=== PATIENT | female | born 1995 | race Hispanic/Latino ===

== ENCOUNTER 2018-06-24 03:30 | Emergency (ER) | payer OTHER, MEDICAID, SELFPAY ==
[2018-06-24 03:48] VITALS: BP 120/71; PULSE 71; RESP 20; TEMP 36.7; O2SAT 99; BMI 47.5
--- NOTE | 2018-06-24 04:00 | ED_ITS ---
HPI - Nausea/Vomiting/Diarrhea General Chief complaint: Nausea/Vomiting/Diarrhea Stated complaint: N/V/D Time Seen by Provider: 06/24/18 03:35 Source: patient and family Mode of arrival: ambulatory Limitations: no limitations History of Present Illness HPI Narrative: 23-year-old female, nonsmoker with history of gastritis presents with 1 week of nausea, vomiting and diarrhea. She denies dizziness, weakness or lightheadedness. She denies recent travel. She denies any recent antibiotics. She denies any exposure to ill persons.She denies any fever or shaking chills. She has had similar symptoms in the past and was told it was called gastritis. She denies any new dietary limitations. She admits to generalized abdominal discomfort that pills until an episode of vomiting or diarrhea at which point improves slightly with until symptoms returns MD complaint: nausea, vomiting and diarrhea Onset (ago): day(s) Description of Vomiting: watery Description of Diarrhea: watery and mucousy Associated Abdominal Pain: Yes Location of pain: diffuse Severity: mild Quality: cramping Related Data Home Medications Medication Instructions Recorded Confirmed levothyroxine [Synthroid] 100 mcg PO Q DAY #0 10/06/11 Previous Rx's Medication Instructions Recorded norgestimate-ethinyl estradiol 1 tab PO QDAY #1 packet 05/16/17 [Ortho Tri-Cyclen (28)] hyoscyamine sulfate 0.125 mg SL BID-QID PRN #10 tab 06/24/18 ondansetron 4 mg PO TID-QID PRN #10 tab 06/24/18 pantoprazole [Protonix] 40 mg PO DAILY #30 tab 06/24/18 Allergies Allergy/AdvReac Type Severity Reaction Status Date / Time No Known Drug Allergies Allergy Verified 06/24/18 04:01 Review of Systems Constitutional Denies chills, Denies fever(s), Denies lethargy and Denies weakness Eyes Denies change in vision, Denies eye discharge, Denies irritation and Denies loss of vision ENT Ears, Nose, Mouth, and Throat: Denies change in voice, Denies neck pain and Denies sore throat Cardiovascular Denies chest pain, Denies irregular heart rhythm, Denies lightheadedness, Denies palpitations, Denies dyspnea, Denies dyspnea on exertion and Denies orthopnea Respiratory Denies cough, Denies dyspnea, Denies dyspnea on exertion and Denies wheezing Gastrointestinal Gastrointestinal: Reports abdominal pain, Denies change in bowel habits, Reports diarrhea, Reports nausea and Reports vomiting Genitourinary Denies hematuria, Denies flank pain, Denies urinary incontinence and Denies urinary urgency Musculoskeletal Denies neck pain Integumentary/Breasts Denies pruritus, Denies erythema, Denies rash and Denies wounds Neurologic Denies confusion, Denies loss of vision and Denies weakness Psychiatric Denies anxiety, Denies confusion, Denies depression, Denies homicidal ideation and Denies suicidal ideation Endocrine Denies palpitations Hematologic/Lymphatic Denies easy bruising Allergic/Immunologic Denies wheezing [facility] Social History Smoking Status: Never smoker Exam Narrative Exam Narrative: GENERAL: 23-year-old female, morbidly obese, no obvious distress HEAD: Atraumatic. Normocephalic. No temporal or scalp tenderness. EYES: Pupils equal round and reactive. Extraocular motions intact. No scleral icterus. No injection or drainage. ENT: Nose without bleeding, purulent drainage or septal hematoma. Throat without erythema, tonsillar hypertrophy or exudate. Uvula midline. Airway patent. NECK: Trachea midline. No JVD or lymphadenopathy. Supple, nontender, no meningeal signs. CARDIOVASCULAR: Regular rate and rhythm without murmurs, gallops, or rubs. RESPIRATORY: Clear to auscultation. Breath sounds equal bilaterally. No wheezes , rales, or rhonchi. GASTROINTESTINAL: Abdomen soft, non-tender, nondistended. No hepato-splenomegaly , or palpable masses. No guarding. EXTREMITIES: No clubbing, cyanosis, or edema. No joint tenderness, effusion, or edema noted. BACK: Nontender without deformity or crepitance. No flank tenderness. NEURO: AOx3. SKIN: No rash or erythema. Initial Vital Signs Initial Vital Signs: Vital Signs Temperature 98.1 F 06/24/18 03:48 Pulse Rate 71 06/24/18 03:48 Respiratory Rate 20 06/24/18 03:48 Blood Pressure 120/71 06/24/18 03:48 Pulse Oximetry 99 06/24/18 03:48 Course Orders Ordered: ED Orders 06/24/18 03:57 GI Panel (Film Array) Stat Discontinued Medications Al Hydrox/Mg Hydrox/Simethicone 20 ml/ Lidocaine HCl 15 ml 0 ml PO NOW ONE Stop: 06/24/18 04:24 Last Admin: 06/24/18 04:52 Dose: 35 ml Ondansetron HCl (Zofran Odt) 4 mg SL NOW ONE Stop: 06/24/18 04:01 Last Admin: 06/24/18 04:04 Dose: 4 mg Vital Signs - 8 hr 06/24/18 03:48 Temperature 98.1 F Pulse Rate 71 Respiratory Rate 20 Blood Pressure 120/71 Pulse Oximetry 99 MDM - Nausea/Vomiting/Diarrhea Lab Data Lab Results 06/24/18 Range/Units 03:57 Stool Aeromonas Cult Awaiting culture res (Not Detect) Stl C. cayetanensis PCR Not detected (Not Detect) Stool Rotavirus (PCR) Not detected (Not Detect) Stool Adenovirus (PCR) Not detected (Not Detect) Stool Astrovirus (PCR) Not detected (Not Detect) Stool Cryptosporidium PCR Not detected (Not Detect) Stl E.coli Shiga Tox PCR Not detected (Not Detect) St Sh/Enteroin Ecoli PCR Not detected (Not Detect) Stool E coli O157 PCR Not Reportable Stl Enterotoxigenic E PCR Not detected (Not Detect) Stool EPEC (PCR) Not detected (Not Detect) Stl E. histolytica PCR Not detected (Not Detect) Stool Giardia Lamblia PCR Not detected (Not Detect) Stl P. shigelloides PCR Not detected (Not Detect) St Y.enterocolitica PCR Not detected (Not Detect) Stool Vibrio (PCR) Not detected (Not Detect) Stl Vibrio cholerae PCR Not detected (Not Detect) Stl Enteroaggr Ecoli PCR Not detected (Not Detect) Stl Norovirus GI/GII PCR Detected H (Not Detect) Campylobacter (PCR) Not detected (Not Detect) C. difficile Tox (PCR) Not detected (Not Detect) Salmonella (PCR) Not detected (Not Detect) Discharge Plan Departure Patient Disposition: Home Clinical Impression: Gastroenteritis, Norovirus Instructions: DI for Viral Gastroenteritis -- Adult Activity Restrictions/Additional Instructions: 1. Drink plenty of fluids with frequent small sips. 2. For the next 24 hours a clear liquid diet is advised. After that please employ a brat diet which would include bananas, rice, apples, toast. 3. Please take medications as directed. 4. Please follow-up with your doctor in the next 1-2 days. Call the office for an appointment. 5. Please return to the emergency Department for any worsening or persistent symptoms, such as increasing pain or fever. Prescriptions: New ondansetron 4 mg tablet,disintegrating 4 mg PO TID-QID PRN (Reason: nausea and vomiting) Qty: 10 RF: 0 pantoprazole [Protonix] 40 mg tablet,delayed release (DR/EC) 40 mg PO DAILY Qty: 30 RF: 0 hyoscyamine sulfate 0.125 mg tablet, sublingual 0.125 mg SL BID-QID PRN (Reason: dyspepsia) Qty: 10 RF: 0 No Action levothyroxine [Synthroid] 25 MCG tablet 100 mcg PO Q DAY Qty: 0 RF: 0 norgestimate-ethinyl estradiol [Ortho Tri-Cyclen (28)] 1 EACH tablet 1 tab PO QDAY Qty: 1 RF: 0
[2018-06-24] MEDS: ONDANSETRON 4 MG ODT SL (04:04)
[2018-06-24] MEDS: MAG HYDROX/ALUMINUM/SIMETH SUS 20 ML, LIDOCAINE VISCOUS 2% 15 ML PO (04:52)
[2018-06-24 05:26] LABS: Adenovirus F 40/41 Not Detected (Not Detect); Astrovirus Not Detected (Not Detect); Campylobacter Not Detected (Not Detect); Clostridium difficile toxin AB Not Detected (Not Detect); Cryptosporidium Not Detected (Not Detect); Cyclospora cayetanensis Not Detected (Not Detect); Entamoeba histolytica Not Detected (Not Detect); Enteroaggregative E.coli Not Detected (Not Detect); Enteropathogenic E.coli Not Detected (Not Detect); Enterotoxigenic E.coli It/st Not Detected (Not Detect); Giardia lamblia Not Detected (Not Detect); Plesiomonsa shigelloides Not Detected (Not Detect); Rotavirus A Not Detected (Not Detect); Salmonella Not Detected (Not Detect); Shiga-like toxin-prod E.coli Not Detected (Not Detect); Shigella/Enteroinvasive E.coli Not Detected (Not Detect); Vibrio Not Detected (Not Detect); Vibrio cholerae Not Detected (Not Detect); Yersinia enterocolitica Not Detected (Not Detect)
[2018-06-24 05:28] LABS: Norovirus GI/GII Detected (Not Detect)
[2018-06-24 06:15] VITALS: BP 120/56; PULSE 56; RESP 16; TEMP 36.8; O2SAT 97
== END 2018-06-24 05:55 | disposition home or self-care (01) ==
PROVIDERS: Emergency Provider Emergency Medicine
DX: K52.9 Noninfective gastroenteritis and colitis, unspecified (principal); A08.11 Acute gastroenteropathy due to Norwalk agent
CPT/HCPCS: 87507; 99282; 99283

== ENCOUNTER 2019-10-04 04:37 | Emergency (ER) | payer OTHER, SELFPAY ==
[2019-10-04 04:43] VITALS: BP 130/90; PULSE 95; RESP 17; TEMP 37.3; O2SAT 96; BMI 51.6
--- NOTE | 2019-10-04 04:48 | ED_ITS ---
HPI - General Adult <Javi Pelayo DO - Last Filed: 10/04/19 18:03> General Chief complaint: Abdominal Pain Stated complaint: pain in left side/chest some difficulty breathing Time Seen by Provider: 10/04/19 04:39 Source: patient Mode of arrival: Ambulatory Limitations: no limitations History of Present Illness HPI narrative: 24-year-old female here for evaluation of right upper quadrant /right-sided chest discomfort. Patient states that her symptoms started yesterday evening. She states she does have a history of asthma. She that potentially this was an asthma issue because it was causing her to have some shortness of breath. She was not coughing. She used her inhaler with minimal or no improvement. States the symptoms did seem to go away after time within return in the middle the night. Is not worse with touch or movement. Does hurt when she breathes in and out. No fevers. Related Data Home Medications Medication Instructions Recorded Confirmed levothyroxine [Synthroid] 100 mcg PO Q DAY #0 10/06/11 07/20/19 Previous Rx's Medication Instructions Recorded norgestimate-ethinyl estradiol 1 tab PO QDAY #1 packet 05/16/17 [Ortho Tri-Cyclen (28)] hyoscyamine sulfate 0.125 mg SL BID-QID PRN #10 tab 06/24/18 pantoprazole [Protonix] 40 mg PO DAILY #30 tab 06/24/18 albuterol sulfate 90 mcg/actuation 2 puff INHALATION Q4-6H PRN #8.5 07/20/19 aerosol inhaler gram inhalational spacing device #1 each 07/20/19 dicyclomine 20 mg PO TID PRN #15 tab 10/04/19 ibuprofen 600 mg PO QID PRN #20 tab 10/04/19 Allergies Allergy/AdvReac Type Severity Reaction Status Date / Time No Known Drug Allergies Allergy Verified 07/20/19 12:51 Review of Systems <DO Pramod Seals Last Filed: 10/04/19 18:03> Constitutional Constitutional: Denies fever(s) and Denies headache(s) ENT Ears, Nose, Mouth, and Throat: Denies headache(s) Cardiovascular Cardiovascular: Reports chest pain (Right lower chest) and Denies dyspnea on exertion Respiratory Respiratory: Denies cough, Reports pain on inspiration and Denies dyspnea on exertion Gastrointestinal Gastrointestinal: Reports abdominal pain (Right upper quadrant), Denies nausea and Denies vomiting Genitourinary Genitourinary: Denies dysuria Musculoskeletal Musculoskeletal: Denies myalgias and Denies arthralgias Integumentary/Breasts Skin/Breast: Denies lesions and Denies rash Neurologic Neurologic: Denies behavioral changes and Denies headache(s) Psychiatric Psychiatric: Denies behavioral changes Hematologic/Lymphatic Hematologic/Lymphatic: Denies easy bleeding and Denies easy bruising Patient History <Javi Pelayo DO - Last Filed: 10/04/19 18:03> Medical History Asthma (Acute) Hypothyroid (Acute) Social History Smoking Status: Never smoker Smoking Status: Never smoker alcohol intake frequency: holidays/special occasions only Substance Use Type: does not use Exam <DO Pramod Seals Last Filed: 10/04/19 18:03> Initial Vital Signs Initial Vital Signs: Vital Signs Temperature 99.2 F 10/04/19 04:43 Pulse Rate 95 H 10/04/19 04:43 Respiratory Rate 17 10/04/19 04:43 Blood Pressure 130/90 10/04/19 04:43 Pulse Oximetry 96 10/04/19 04:43 Const General: cooperative and comfortable Limitations: mental status not altered HENTX Head: normal to inspection and normocephalic Chest Chest: No crepitus and No tenderness Resp Effort & Inspection: normal respiratory effort Auscultation: clear to auscultation bilaterally Cardio Rate: regular rate Rhythm: regular rhythm GI Inspection: non-distended Palpation: soft and tender (Right upper quadrant) Back/Spine/Pelvis Back: No CVA tenderness Skin Lesions: no lesions Rashes: no rashes Neuro General: alert, awake and oriented x3 Cognition: normal cognition Speech: speech normal Extrem General: normal to inspection and capillary refill normal Psych Appearance: grossly normal and well kempt <Jayson Baumann MD - Last Filed: 10/05/19 19:39> Initial Vital Signs Initial Vital Signs: Vital Signs Temperature 99.2 F 10/04/19 04:43 Pulse Rate 95 H 10/04/19 04:43 Respiratory Rate 17 10/04/19 04:43 Blood Pressure 130/90 10/04/19 04:43 Pulse Oximetry 96 10/04/19 04:43 Scores <Javi Pelayo DO - Last Filed: 10/04/19 18:03> GCS [place] coma scale eye opening: Spontaneous [place] coma scale verbal response: Orientated [place] coma scale motor response: Obey commands [place] coma scale total score: 15 Course <Javi Pelayo DO - Last Filed: 10/04/19 18:03> Orders Ordered: Discontinued Medications Ketorolac Tromethamine (Toradol) 30 mg IV NOW ONE Stop: 10/04/19 05:22 Last Admin: 10/04/19 05:30 Dose: 30 mg Documented by: YVETTE Vital Signs Vital signs: Vital Signs - 8 hr 10/04/19 04:43 10/04/19 07:57 Temperature 99.2 F Pulse Rate 95 H 74 Respiratory Rate 17 16 Blood Pressure 130/90 Blood Pressure [Left Arm] 102/57 L Pulse Oximetry 96 98 <Jayson Baumann MD - Last Filed: 10/05/19 19:39> Course Course Narrative: TRANSFER OF CARE ADDENDUM: Dr. Pelayo at the change of shift provided report concerning this patient. Her ultrasound of the gallbladder demonstrates a normal sewn graphic appearance without biliary duct dilation. Her white blood count is 11.7, hemoglobin 11.1, hematocrit 33.4, MCV normal at 80.5. The patient has normal electrolytes and renal function. Her glucose is 133. She has mildly abnormal liver functions with an AST of 49 and ALT of 57. Her test is negative. The patient will be discharged home on a nonsteroidal ibuprofen and Bentyl for abdominal cramps. She will be informed that if she develops fever worsening pain uncontrolled nausea and vomiting high fever she will need to be re-evaluated. Otherwise she needs to follow-up with her primary care physician and be re- evaluated in 48-72 hours. 0835 on re-examination the patient states that she has been pain-free since being administered the Toradol. Her abdomen is soft and nontender on palpation of the right upper quadrant. She does not believe she is still on the hike 0 s pipe and is out of it. I explained to her the danger signs and when to return to the emergency department her lab results ultrasound results and medications that she has been prescribed. Orders Ordered: Discontinued Medications Ketorolac Tromethamine (Toradol) 30 mg IV NOW ONE Stop: 10/04/19 05:22 Last Admin: 10/04/19 05:30 Dose: 30 mg Documented by: YVETTE Vital Signs Vital signs: Vital Signs - 8 hr 10/04/19 04:43 10/04/19 07:57 Temperature 99.2 F Pulse Rate 95 H 74 Respiratory Rate 17 16 Blood Pressure 130/90 Blood Pressure [Left Arm] 102/57 L Pulse Oximetry 96 98 Medical Decision Making <Javi Pelayo DO - Last Filed: 10/04/19 18:03> Lab Data Lab results reviewed: Yes I reviewed the patient's lab results. Result diagrams: 10/04/19 04:58 10/04/19 05:30 Labs: Lab Results 10/04/19 10/04/19 10/04/19 Range/Units 04:58 04:58 05:30 WBC 11.7 H (4.5-11.0) X10^3/uL RBC 4.15 (4.0-5.2) X10^6/uL Hgb 11.1 L (12.0-16.0) g/dL Hct 33.4 L (36-46) % MCV 80.5 (80-100) fL MCH 26.7 (26-34) PG MCHC 33.2 (30-36) % RDW 13.4 (11.6-14.8) % Plt Count 427 H (150-400) X10^3/uL Neut % (Auto) 60.7 (50-75) % Lymph % (Auto) 28.3 (25-40) % [place] % (Auto) 8.2 (3-14) % Eos % (Auto) 2.0 (2-4) % Baso % (Auto) 0.8 (0-2) % Neut # (Auto) 7100 H (1058-2135) /uL Lymph # (Auto) 3300 (6410-1858) /uL [place] # (Auto) 1000 H (0-900) /uL Eos # (Auto) 200 (0-450) /uL Baso # (Auto) 100 (0-100) /uL Sodium 137 (137-145) mmol/L Potassium 4.2 (3.4-5.1) mmol/L Chloride 102 (98-107) mmol/L Carbon Dioxide 29 (22-32) mmol/L BUN 9 (7-17) mg/dL Creatinine 0.65 (0.52-1.04) mg/dL Estimated GFR > 60.0 (>60) mL/min BUN/Creatinine Ratio 13.8 (6-22) Glucose 133 H (70-100) mg/dL Calcium 9.5 (8.4-10.2) mg/dL Total Bilirubin 0.4 (0.2-1.3) mg/dL AST 49 H (14-36) IU/L ALT 57 H (<35) IU/L Alkaline Phosphatase 90 (38-126) U/L Total Protein 8.4 H (6.3-8.2) g/dL Albumin 4.3 (3.5-5.0) g/dL Globulin 4.1 (1.7-4.1) g/dL Albumin/Globulin Ratio 1.0 (1.0-2.8) Lipase 50 (23-300) U/L Serum , Qual Negative (Negative) ECG Data Attestation: I personally reviewed and interpreted this ECG as follows: Prior ECG tracings: not available for review Interpretation: Sinus rhythm Ventricular rate 89 Normal axis Normal QRS Normal QTC No ST T wave changes MDM Narrative Medical decision making narrative: Improvement after Toradol. Chest x-ray shows no signs of pneumonia. Does have slight elevation in the LFTs. Given the location of her symptoms SIRS concern for gallbladder pathology. Right upper quadrant ultrasound ordered. Care turned over to Dr. Baumann at change of shift to follow up on ultrasound and disposition. <Jayson Baumann MD - Last Filed: 10/05/19 19:39> Lab Data Labs: Lab Results 10/04/19 10/04/19 10/04/19 Range/Units 04:58 04:58 05:30 WBC 11.7 H (4.5-11.0) X10^3/uL RBC 4.15 (4.0-5.2) X10^6/uL Hgb 11.1 L (12.0-16.0) g/dL Hct 33.4 L (36-46) % MCV 80.5 (80-100) fL MCH 26.7 (26-34) PG MCHC 33.2 (30-36) % RDW 13.4 (11.6-14.8) % Plt Count 427 H (150-400) X10^3/uL Neut % (Auto) 60.7 (50-75) % Lymph % (Auto) 28.3 (25-40) % [place] % (Auto) 8.2 (3-14) % Eos % (Auto) 2.0 (2-4) % Baso % (Auto) 0.8 (0-2) % Neut # (Auto) 7100 H (5027-5166) /uL Lymph # (Auto) 3300 (2333-4245) /uL [place] # (Auto) 1000 H (0-900) /uL Eos # (Auto) 200 (0-450) /uL Baso # (Auto) 100 (0-100) /uL Sodium 137 (137-145) mmol/L Potassium 4.2 (3.4-5.1) mmol/L Chloride 102 (98-107) mmol/L Carbon Dioxide 29 (22-32) mmol/L BUN 9 (7-17) mg/dL Creatinine 0.65 (0.52-1.04) mg/dL Estimated GFR > 60.0 (>60) mL/min BUN/Creatinine Ratio 13.8 (6-22) Glucose 133 H (70-100) mg/dL Calcium 9.5 (8.4-10.2) mg/dL Total Bilirubin 0.4 (0.2-1.3) mg/dL AST 49 H (14-36) IU/L ALT 57 H (<35) IU/L Alkaline Phosphatase 90 (38-126) U/L Total Protein 8.4 H (6.3-8.2) g/dL Albumin 4.3 (3.5-5.0) g/dL Globulin 4.1 (1.7-4.1) g/dL Albumin/Globulin Ratio 1.0 (1.0-2.8) Lipase 50 (23-300) U/L Serum , Qual Negative (Negative) Discharge Plan Departure Patient Disposition: Home Clinical Impression: Right upper quadrant abdominal pain, Abnormal liver function test Discharge Date/Time: 10/04/19 08:51 Instructions: DI for Abdominal Pain-Adult Activity Restrictions/Additional Instructions: 1. Follow-up with your primary care physician to be re-evaluated in 48-72 hours if your discomfort has not improved. 2. Return to the emergency department if you develop severe worsening pain on relieved by the medications prescribed. If you develop high fever, uncontrolled pain and discomfort associated with persistent nausea and vomiting, dizziness lightheadedness fainting, chest pain or shortness of breath you need to return to the emergency department to be re-evaluated. 3. Your pain was relieved by Toradol IV. We are prescribing ibuprofen 600 mg every 6 hours as needed for pain and discomfort which is an oral nonsteroidal very similar to the Toradol. Bentyl has been prescribed to help with any abdominal pain and cramps. 4. Drink at least 2-3 L of fluid per day to keep yourself hydrated and advance her diet as tolerated. Prescriptions: New dicyclomine 20 mg tablet 20 mg PO TID PRN (Reason: abdominal pain) Qty: 15 RF: 0 ibuprofen 600 mg tablet 600 mg PO QID PRN (Reason: fever or pain) Qty: 20 RF: 0 No Action (DME) Aerochamber MV Spacer See Rx Instructions .ROUTE .MEDSUPPLY Qty: 1 RF: 0 albuterol sulfate 90 mcg/actuation HFA aerosol inhaler 2 puff INHALATION Q4-6H PRN (Reason: shortness of breath or wheezing) Qty: 8.5 RF: 0 levothyroxine [Synthroid] 25 MCG tablet 100 mcg PO Q DAY Qty: 0 RF: 0 norgestimate-ethinyl estradiol [Ortho Tri-Cyclen (28)] 1 EACH tablet 1 tab PO QDAY Qty: 1 RF: 0 pantoprazole [Protonix] 40 mg tablet,delayed release (DR/EC) 40 mg PO DAILY Qty: 30 RF: 0 hyoscyamine sulfate 0.125 mg tablet, sublingual 0.125 mg SL BID-QID PRN (Reason: dyspepsia) Qty: 10 RF: 0
--- NOTE | 2019-10-04 04:48 | DI.RAD.S_ITS ---
PROCEDURE: XR CHEST 1V INDICATIONS: Chest pain TECHNIQUE: One view of the chest was acquired. COMPARISON: [facility], ABDOMEN LIMITED, 10/04/2019, 7:13. FINDINGS: Surgical changes and devices: None. Lungs and pleura: On this semiupright portable chest examination, no large pneumothorax or large pleural effusions are seen. No focal infiltrates are seen. Mediastinum: Mediastinal contours appear normal. Heart size is normal. Bones and chest wall: No suspicious bony lesions. Overlying soft tissues appear unremarkable. IMPRESSION: Portable chest within normal limits. Dictated by: Wu Lei M.D. on 10/04/2019 at 7:04 Approved by: Wu Lei M.D. on 10/04/2019 at 7:05
[2019-10-04 05:08] LABS: Add Manual Diff / Slide Review NO; Basophils Absolute Auto 100 /uL (0-100); Basophils Percent Auto 0.8 % (0-2); Eosinophils Absolute Auto 200 /uL (0-450); Hematocrit 33.4 % (36-46); Hemoglobin 11.1 g/dL (12.0-16.0); Lymphocytes Absolute Auto 3300 /uL (1100-4500); Lymphocytes Percent Auto 28.3 % (25-40); Mean Corpuscular HGB Conc 33.2 % (30-36); Mean Corpuscular Hemoglobin 26.7 PG (26-34); Mean Corpuscular Volume 80.5 fL (80-100); Monocytes Absolute Auto 1000 /uL (0-900); Monocytes Percent Auto 8.2 % (3-14); Neutrophils Absolute Auto 7100 /uL (1500-7000); Neutrophils Percent Auto 60.7 % (50-75); Platelet Count 427 X10^3/uL (150-400); Red Blood Cell Count 4.15 X10^6/uL (4.0-5.2); Red Cell Distribution Width 13.4 % (11.6-14.8); White Blood Cell Count 11.7 X10^3/uL (4.5-11.0)
[2019-10-04 05:30] LABS: Pregnancy Test Serum,Qual Negative (Negative)
[2019-10-04] MEDS: KETOROLAC 60 MG/2 ML VIAL 30 MG IV (05:30)
[2019-10-04 05:56] LABS: Alanine Aminotransferase 57 IU/L (<35); Albumin 4.3 g/dL (3.5-5.0); Alkaline Phosphatase 90 U/L (38-126); Aspartate Aminotransferase 49 IU/L (14-36); BUN Creatinine Ratio 13.8 (6-22); Bilirubin Total 0.4 mg/dL (0.2-1.3); Blood Urea Nitrogen 9 mg/dL (7-17); Calcium 9.5 mg/dL (8.4-10.2); Carbon Dioxide 29 mmol/L (22-32); Chloride 102 mmol/L (98-107); Estimated Glomerular Filt Rate > 60.0 mL/min (>60); Globulin 4.1 g/dL (1.7-4.1); Glucose 133 mg/dL (70-100); HEMOLYSIS < 15 (0-50); Lipase 50 U/L (23-300); Potassium 4.2 mmol/L (3.4-5.1); Sodium 137 mmol/L (137-145); Total Protein 8.4 g/dL (6.3-8.2)
--- NOTE | 2019-10-04 06:03 | DI.US.S_ITS ---
PROCEDURE: US ABDOMEN LIMITED INDICATIONS: RIGHT UPPER QUADRANT PAIN TECHNIQUE: Real-time focused scanning was performed of the abdomen, with image documentation. COMPARISON: None. FINDINGS: The liver demonstrates normal size. The liver demonstrates generalized increased echogenicity. This decreases ultrasound sensitivity for detection of hepatic masses. No findings of gallstones or sludge are seen. The gallbladder wall is not thickened, measuring 3 mm or less. No specific pericholecystic fluid is seen. The sonographic [place] sign is negative. There is no biliary dilatation, the common bile duct measures 5 mm. No significant pancreatic abnormality is seen on these images. IMPRESSION: The gallbladder demonstrates a normal sonographic appearance. No biliary dilatation is seen. The liver demonstrates increased echogenicity. This finding is nonspecific, yet it is most commonly attributed to fatty infiltration. Dictated by: Wu Lei M.D. on 10/04/2019 at 7:00 Approved by: Wu Lei M.D. on 10/04/2019 at 7:01
[2019-10-04 07:57] VITALS: BP 102/57; PULSE 74; RESP 16; O2SAT 98
[2019-10-04 08:50] VITALS: BP 110/57; PULSE 63; RESP 18; O2SAT 98
== END 2019-10-04 08:51 | disposition home or self-care (01) ==
PROVIDERS: Emergency Medicine; Emergency Provider Emergency Medicine
DX: R10.11 Right upper quadrant pain (principal); R94.5 Abnormal results of liver function studies; R07.9 Chest pain, unspecified
CPT/HCPCS: 36415; 71045; 76705; 80053; 83690; 84703; 85025; 93005; 96374; 99284; J1885

== ENCOUNTER → 2020-05-02 12:58 | Outpatient (CLI) | payer OTHER, SELFPAY ==
[2020-05-02 13:50] LABS: Add Manual Diff / Slide Review NO; Basophils Absolute Auto 100 /uL (0-100); Basophils Percent Auto 0.7 % (0-2); Eosinophils Absolute Auto 300 /uL (0-450); Eosinophils Percent Auto 2.3 % (2-4); Hematocrit 35.1 % (36-46); Hemoglobin 11.2 g/dL (12.0-16.0); Lymphocytes Absolute Auto 3800 /uL (1100-4500); Lymphocytes Percent Auto 29.8 % (25-40); Mean Corpuscular HGB Conc 31.9 % (30-36); Mean Corpuscular Hemoglobin 24.3 PG (26-34); Mean Corpuscular Volume 76.1 fL (80-100); Monocytes Absolute Auto 700 /uL (0-900); Monocytes Percent Auto 5.7 % (3-14); Neutrophils Absolute Auto 7800 /uL (1500-7000); Neutrophils Percent Auto 61.5 % (50-75); Platelet Count 463 X10^3/uL (150-400); Red Blood Cell Count 4.62 X10^6/uL (4.0-5.2); Red Cell Distribution Width 14.3 % (11.6-14.8); White Blood Cell Count 12.6 X10^3/uL (4.5-11.0)
[2020-05-02 14:00] LABS: Hemoglobin A1C% w Est Avg Glu 5.9 % (4.0-6.0)
[2020-05-02 14:02] LABS: Pregnancy Test Urine Negative (Negative)
[2020-05-02 14:36] LABS: Alanine Aminotransferase 73 IU/L (<35); Albumin 4.4 g/dL (3.5-5.0); Albumin Globulin Ratio 1.1 (1.0-2.8); Alkaline Phosphatase 103 U/L (38-126); Aspartate Aminotransferase 64 IU/L (14-36); BUN Creatinine Ratio 21.1 (6-22); Bilirubin Total 0.5 mg/dL (0.2-1.3); Blood Urea Nitrogen 12 mg/dL (7-17); Calcium 9.9 mg/dL (8.4-10.2); Carbon Dioxide 29 mmol/L (22-32); Chloride 102 mmol/L (98-107); Cholesterol 176 mg/dL (140-199); Estimated Glomerular Filt Rate > 60.0 mL/min (>60); Glucose 89 mg/dL (70-100); HDL Cholesterol 35 mg/dL (40-60); HEMOLYSIS < 15 (0-50); LDL Cholesterol Calculated 105 mg/dL (<100); Potassium 4.2 mmol/L (3.4-5.1); Sodium 137 mmol/L (137-145); Total Protein 8.4 g/dL (6.3-8.2); Triglycerides 178 mg/dL (35-150)
[2020-05-06 11:11] LABS: Percent Free Testosterone 2.69 % (0.50-2.80); Testosterone Free 0.63 ng/dL (0.10-0.85); Testosterone Total 23.6 ng/dL (10.0-55.0)
== END ==
PROVIDERS: PCP Family Medicine; Referring Provider Family Medicine; Visit Provider Family Medicine
DX: E03.9 Hypothyroidism, unspecified (principal); N92.1 Excessive and frequent menstruation with irregular cycle
CPT/HCPCS: 36415; 80053; 80061; 81025; 83036; 83498; 84402; 84403; 85025; 87491; 87591

== ENCOUNTER → 2020-06-17 16:18 | Outpatient (CLI) | payer OTHER, SELFPAY ==
[2020-06-17] MEDS: COVID-19 VACC #1, MRNA(MOD) 100 MCG/0.5 ML VIAL IM (16:31)
== END ==
PROVIDERS: PCP Family Medicine; Visit Provider Internal Medicine
DX: Z23 Encounter for immunization (principal)
CPT/HCPCS: 0011A; 91301

== ENCOUNTER 2020-06-19 06:43 | Emergency (ER) | payer OTHER, SELFPAY ==
[2020-06-19 07:02] VITALS: BP 169/101; PULSE 80; RESP 16; TEMP 36.6; O2SAT 100; BMI 49.4
--- NOTE | 2020-06-19 07:04 | ED.ARRPALP ---
HPI - Arrhythmia/Palpitations General Chief Complaint: Arrhythmia/Palpitations Stated Complaint: covid vac #1 heart beat high Time Seen by Provider: 06/19/20 06:58 Source: patient and old records reviewed Mode of arrival: Ambulatory Limitations: no limitations History of Present Illness HPI narrative: This is a 25-year-old female who comes to the emergency department with concern for elevated heart rate. Patient states she had her coronavirus vaccine on Saturday the 17 of June. Patient states that she has a history of hypothyroidism and takes levothyroxine, she is currently on her menses. She states this morning she was up so to the bathroom at 5:00 a.m.. She felt lightheaded. She sat down on the couch felt like her heart rate was high when she sat up. She did feel like she was going to pass out but did feel lightheaded. She states she still has that sensation a little bit that her heart rate elevated but she is unsure if it really is or if she is just anxious. She denies any shortness of breath, no chest pain or pressure. She has had some mild fevers and chills since her vaccine and has been taking Tylenol. She has had some mild nausea this morning. No vomiting. No issues with bowel movements, no issues with urination. No swelling in her extremities, face, airway or elsewhere. She has had a little bit of pain and swelling at her vaccine site. She denies any rashes or skin changes. She has noticed that she has had a little bit larger blood clots with her menses but states that she did walk for multiple hours yesterday. She states has irregular menses. She denies any surgical history. No allergies to medications or prior vaccines. No tobacco, rare alcohol and no illicit. She works in a dental office. Related Data Home Medications Medication Instructions Recorded Confirmed levothyroxine [Synthroid] 100 mcg PO Q DAY #0 10/06/11 04/28/20 Previous Rx's Medication Instructions Recorded albuterol sulfate 90 mcg/actuation 2 puff INHALATION Q4-6H PRN #8.5 07/20/19 aerosol inhaler gram inhalational spacing device #1 each 07/20/19 ibuprofen 600 mg PO QID PRN #20 tab 10/04/19 norethindrone 1.5 mg-ethinyl 1 tab PO DAILY #84 tab 04/28/20 estradiol 30 mcg(21)/iron 75 mg(7) tablet Allergies Allergy/AdvReac Type Severity Reaction Status Date / Time No Known Drug Allergies Allergy Verified 04/28/20 12:54 Review of Systems Review of Systems ROS Unobtainable: All systems reviewed & are unremarkable except as noted in HPI and below Patient History Medical History Asthma Fatty liver disease, nonalcoholic Hypothyroid Iron deficiency anemia Menometrorrhagia Menorrhagia Surgical History Anesthesia H/O wisdom tooth extraction (~01/2016) Family History Father No problems noted. Social History Smoking Status: Never smoker Smoking Status: Never smoker alcohol intake frequency: holidays/special occasions only Substance Use Type: does not use Exam Narrative Exam Narrative: GEN: Obese, well-appearing female, alert and oriented x 3, patient appears to be in mild distress. HEENT: Atraumatic, pupils are equal round reactive to light, extraocular movements are intact, nares are clear. Patient is masked no facial swelling appreciated otherwise. HEART: Regular rate and rhythm without murmur, clicks, rubs. LUNGS:Lungs clear to auscultation, no wheezes, rales, crackles, chest moves symmetrically ABD:bowel sounds normal, soft, non-tender, no guarding, rebound, rigidity, no masses noted, no hepatosplenomegaly :No CVA tenderness MSCL: Non-tender, no muscle atrophy, muscles strength 5/5 upper and lower extremities, full range of motion, no swelling appreciated in extremities. NEURO:CN 2-12 intact, sensation normal SKIN: No rash, erythema or other skin changes appreciated. Initial Vital Signs Initial Vital Signs: Vital Signs Temperature 97.9 F 06/19/20 07:02 Pulse Rate 80 06/19/20 07:02 Respiratory Rate 16 06/19/20 07:02 Blood Pressure 169/101 H 06/19/20 07:02 Pulse Oximetry 100 06/19/20 07:02 Course Orders Ordered: ED Orders 06/19/20 EKG-12 Lead Stat Vital Signs Vital signs: Vital Signs - 8 hr 06/19/20 07:02 Temperature 97.9 F Pulse Rate 80 Respiratory Rate 16 Blood Pressure 169/101 H Pulse Oximetry 100 [facility] - Arrhythmia/Palpitations ECG Data Attestation: I personally reviewed and interpreted this ECG as follows: Prior ECG tracings: available for review Interpretation: Sinus rhythm sinus arrhythmia, rate of 71, WI 162, QRS of 94 and QTC 439. Three of inverted in V1-V3. patient has prior from 10/04/19 with inversion of V1 and V3. [facility] Narrative Medical decision making narrative: Patient has complaints of elevated heart rate. She is very active yesterday walking for multiple hours in up very early this morning. Patient felt sort of lightheaded and describes almost sort of orthostatic symptoms. Discussed with patient these may be secondary to her vaccine. Patient pillars any lab work or further evaluation. We did review her EKG, she is hypertensive today but also very anxious she denies any issues with hypertension in the past. She states she had her labs checked about 4 weeks ago which are reviewed and showed anemia that is mild but stable. Patient also has chronically elevated liver enzymes. Discharge Plan Departure Patient Disposition: Home Clinical Impression: Palpitation Instructions: DI for Palpitations Activity Restrictions/Additional Instructions: Follow-up with your physician if you continue to have sensation of a high heartbeat. Your symptoms may be related to your vaccine. Make sure to your drinking plenty of water. May continue to take Tylenol or ibuprofen as needed. Return to the ER for persistent fevers, chest pain, shortness of breath, dizziness or passing out, persistent vomiting, new rashes or skin changes, elevated heart rate or other new or concerning symptoms. Prescriptions: No Action (DME) Aerochamber MV Spacer See Rx Instructions .ROUTE .MEDSUPPLY Qty: 1 RF: 0 albuterol sulfate 90 mcg/actuation HFA aerosol inhaler 2 puff INHALATION Q4-6H PRN (Reason: shortness of breath or wheezing) Qty: 8.5 RF: 0 levothyroxine [Synthroid] 25 MCG tablet 100 mcg PO Q DAY Qty: 0 RF: 0 norethindrone-e.estradiol-iron [Loestrin Fe 1.5/30 (28-Day)] 1.5 mg-30 mcg (21)/75 mg (7) tablet 1 tab PO DAILY Qty: 84 RF: 1 ibuprofen 600 mg tablet 600 mg PO QID PRN (Reason: fever or pain) Qty: 20 RF: 0 Referrals: Ravi Lee MD [Primary Care Provider] -
== END 2020-06-19 07:30 | disposition home or self-care (01) ==
PROVIDERS: Emergency Provider Emergency Medicine; PCP Family Medicine
DX: R00.2 Palpitations (principal); R11.0 Nausea; E03.9 Hypothyroidism, unspecified; D50.9 Iron deficiency anemia, unspecified; K76.0 Fatty (change of) liver, not elsewhere classified
CPT/HCPCS: 93005; 99282; 99283

== ENCOUNTER → 2020-06-23 15:45 | Outpatient (CLI) | payer OTHER, SELFPAY ==
[2020-06-23 17:43] LABS: Pregnancy Test Urine Negative (Negative)
[2020-06-23 17:50] LABS: Add Manual Diff / Slide Review NO; Basophils Absolute Auto 100 /uL (0-100); Basophils Percent Auto 0.5 % (0-2); Eosinophils Absolute Auto 200 /uL (0-450); Eosinophils Percent Auto 1.6 % (2-4); Hematocrit 33.3 % (36-46); Hemoglobin 10.7 g/dL (12.0-16.0); Lymphocytes Absolute Auto 4000 /uL (1100-4500); Lymphocytes Percent Auto 26.5 % (25-40); Mean Corpuscular HGB Conc 32.2 % (30-36); Mean Corpuscular Hemoglobin 24.1 PG (26-34); Mean Corpuscular Volume 74.7 fL (80-100); Monocytes Absolute Auto 800 /uL (0-900); Monocytes Percent Auto 5.1 % (3-14); Neutrophils Absolute Auto 10000 /uL (1500-7000); Neutrophils Percent Auto 66.3 % (50-75); Platelet Count 492 X10^3/uL (150-400); Red Blood Cell Count 4.46 X10^6/uL (4.0-5.2); Red Cell Distribution Width 14.9 % (11.6-14.8); White Blood Cell Count 15.1 X10^3/uL (4.5-11.0)
[2020-06-23 18:01] LABS: HEMOLYSIS < 15 (0-50); Iron 32 ug/dL (37-170)
[2020-06-23 18:05] LABS: Alanine Aminotransferase 112 IU/L (<35); Albumin 4.4 g/dL (3.5-5.0); Alkaline Phosphatase 94 U/L (38-126); Aspartate Aminotransferase 106 IU/L (14-36); BUN Creatinine Ratio 16.1 (6-22); Bilirubin Total 0.5 mg/dL (0.2-1.3); Blood Urea Nitrogen 9 mg/dL (7-17); Calcium 9.9 mg/dL (8.4-10.2); Carbon Dioxide 30 mmol/L (22-32); Chloride 100 mmol/L (98-107); Estimated Glomerular Filt Rate > 60.0 mL/min (>60); Globulin 4.2 g/dL (1.7-4.1); Glucose 84 mg/dL (70-100); HEMOLYSIS < 15 (0-50); Potassium 3.9 mmol/L (3.4-5.1); Sodium 137 mmol/L (137-145); Total Protein 8.6 g/dL (6.3-8.2)
[2020-06-23 18:12] LABS: Percent Iron Saturation 7 % (15-50); Total Iron Binding Capacity 453 ug/dL (265-497); Transferrin 340 mg/dL (206-381)
[2020-06-23 18:38] LABS: Ferritin 23 ng/mL (6-137)
== END ==
PROVIDERS: PCP Family Medicine; Referring Provider Family Medicine; Visit Provider Family Medicine
DX: E03.9 Hypothyroidism, unspecified (principal); R00.2 Palpitations; D50.0 Iron deficiency anemia secondary to blood loss (chronic); K76.0 Fatty (change of) liver, not elsewhere classified
CPT/HCPCS: 36415; 80053; 81025; 82728; 83540; 83550; 84439; 84443; 85025

== ENCOUNTER → 2020-07-01 15:02 | Outpatient (CLI) | payer OTHER, SELFPAY ==
[2020-07-01 16:08] LABS: C-Reactive Protein Quant 3.1 mg/dL (<1.0)
[2020-07-01 17:55] LABS: INR 1.2 (0.9-1.3); Prothrombin Time 13.4 SECONDS (10.1-12.7)
[2020-07-01 17:58] LABS: PTT Partial Thromboplastin Tim 40 SECONDS (26.4-36.2)
[2020-07-02 04:36] LABS: HBsAg Screen Negative (Negative); Hepatitis A Antibody IgM Negative (Negative); Hepatitis B Core Antibody IgM Negative (Negative); Hepatitis C Antibody <0.1 s/co ratio (0.0-0.9)
[2020-07-03 14:24] LABS: ANA Screen, IFA Negative (.)
[2020-07-05 13:36] LABS: Albumin 34.3 % (.); M-Spike % Not Observed % (Not Observed); Total Urine Protein 11.9 mg/dL (Not Estab.)
[2020-07-05 14:37] LABS: Albumin 3.5 g/dL (2.9-4.4); Alpha-1-Globulin 0.2 g/dL (0.0-0.4); Alpha-2-Globulin 0.9 g/dL (0.4-1.0); Gamma Globulin 1.5 g/dL (0.4-1.8); Globulin Total 3.8 g/dL (2.2-3.9); Protein, Total 7.3 g/dL (6.0-8.5)
== END ==
PROVIDERS: PCP Family Medicine; Referring Provider Family Medicine; Visit Provider Family Medicine
DX: D50.0 Iron deficiency anemia secondary to blood loss (chronic) (principal); E03.9 Hypothyroidism, unspecified; K76.0 Fatty (change of) liver, not elsewhere classified
CPT/HCPCS: 36415; 80074; 84155; 84156; 84165; 84166; 85610; 85730; 86038; 86140

== ENCOUNTER → 2020-07-15 14:25 | Outpatient (CLI) | payer OTHER, SELFPAY ==
[2020-07-15] MEDS: COVID-19 VACC #2, MRNA(MOD) 100 MCG/0.5 ML VIAL IM (14:28)
== END ==
PROVIDERS: PCP Family Medicine; Visit Provider Internal Medicine
DX: Z23 Encounter for immunization (principal)
CPT/HCPCS: 0012A; 91301

== ENCOUNTER 2020-10-27 00:07 | Emergency (ER) | payer OTHER, SELFPAY ==
[2020-10-27] VITALS (21 sets, daily range): BP systolic 111–138; BP diastolic 58–87; PULSE 81–102; RESP 13–24; TEMP 36.9; O2SAT 80–100; BMI 51.0
--- NOTE | 2020-10-27 00:41 | DI.CT.S_ITS ---
PROCEDURE: CT STROKE INDICATIONS: Stroke, headache, blurry vision TECHNIQUE: Noncontrast 4.5 mm thick angled axial sections acquired from the foramen magnum to the vertex, with coronal reformats. For radiation dose reduction, the following was used: automated exposure control, adjustment of mA and/or kV according to patient size. COMPARISON: None. FINDINGS: Image quality: Excellent. CSF spaces: Basal cisterns are patent. No extra-axial fluid collections. Ventricles are normal in size and shape. Brain: No midline shift. No intracranial masses or hemorrhage. Marti-white matter interface is normal. Skull and face: Calvarium and visualized facial bones are intact, without suspicious lesions. Sinuses: Visualized sinuses and mastoids are clear. IMPRESSION: No acute intracranial disease process. This study fulfills neurological imaging criteria for inclusion or exclusion of acute stroke therapies based on available published neurological imaging guidelines. Dictated by: April Mendez MD, PhD on 10/27/2020 at 7:02 Approved by: April Mendez MD, PhD on 10/27/2020 at 7:03
--- NOTE | 2020-10-27 00:41 | DI.CT.S_ITS ---
PROCEDURE: CT ANGIO HEAD AND NECK INDICATIONS: stroke, heacache, blurry vision TECHNIQUE: After the administration of intravenous contrast, 1 mm thick sections acquired from the aortic arch through the [place]. Post-contrast 4.5 mm thick sections then re-acquired from the foramen magnum to the vertex. 3-dimensional [id number] (MIP) and/or volume rendering reformats were acquired of the central intracranial vasculature and neck separately. COMPARISON: [facility], CT, CT STROKE, 10/27/2020, 0:50. FINDINGS: Image quality: Excellent. BRAIN: CSF spaces: Ventricles are normal in size and shape. Basal cisterns are patent. No extra-axial fluid collections. Brain: No midline shift. No intracranial bleeds or masses. Marti-white matter interface appears intact. Skull and face: Calvarium and facial bones appear intact, without suspicious lesions. Orbits appear normal. Sinuses: Sinuses and mastoids are clear. HEAD CT ANGIOGRAPHY: Anterior circulation: Intracranial internal carotid arteries are normal in size and flow. The flow within the paired anterior cerebral arteries is normal and symmetric. The flow within the middle cerebral arteries is normal and symmetric. The anterior communicating artery is seen. No aneurysms are seen. Posterior circulation: Visualized portions of the vertebral arteries demonstrate normal caliber, and join to form a normal appearing basilar artery. Flow within the posterior cerebral arteries is normal and symmetric. No aneurysms are seen. Dural sinuses demonstrate normal postcontrast enhancement. NECK CT ANGIOGRAPHY: Carotid system: The great vessels demonstrate a conventional anatomy as they arise from the aortic arch. The origins of the common carotid arteries appear patent. The common carotid arteries demonstrate normal caliber and courses. The bifurcation regions are both widely patent. The internal carotid arteries demonstrate normal calibers and courses. Posterior circulation: The origins of the vertebral arteries both appear widely patent. The more superior extracranial portions of both vertebral arteries also demonstrate normal courses and calibers. They join to form a normal appearing basilar artery. Soft tissues: There is a 1.8 x 2.0 x 2.2 centimeter hyperdense versus enhancing nodule in the midline of the base of the tongue/floor of the mouth which may represent ectopic thyroid tissue 1.1 centimeter right level 2 lymph node and 1.2 centimeter left level 2 lymph node. Numerous prominent bilateral level 1, level 2, level 3, level 4 and level 5 neck lymph nodes are noted which do not meet pathologic size criteria. 1.2 centimeter short axis left subpectoral lymph node. Bones: No suspicious bony lesions. Visualized cervical spine appears normally aligned. IMPRESSION: 1. No acute intracranial disease process. 2. No large vessel occlusion, vascular stenosis, vascular dissection or aneurysm. 3. 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 2. Bilateral level 2 neck and left subpectoral chest lymphadenopathy which could be reactive or neoplastic. Any quantitative measurements of stenosis were performed using NASCET criteria. Dictated by: April Mendez MD, PhD on 10/27/2020 at 8:02 Approved by: April Mendez MD, PhD on 10/27/2020 at 8:13
[2020-10-27 01:01] LABS: Add Manual Diff / Slide Review NO; Basophils Absolute Auto 100 /uL (0-100); Basophils Percent Auto 1.1 % (0-2); Eosinophils Absolute Auto 500 /uL (0-450); Eosinophils Percent Auto 4.3 % (2-4); Hematocrit 32.4 % (36-46); Hemoglobin 10.1 g/dL (12.0-16.0); Lymphocytes Absolute Auto 3300 /uL (1100-4500); Lymphocytes Percent Auto 29.6 % (25-40); Mean Corpuscular HGB Conc 31.2 % (30-36); Mean Corpuscular Hemoglobin 22.5 PG (26-34); Mean Corpuscular Volume 72.3 fL (80-100); Monocytes Absolute Auto 700 /uL (0-900); Monocytes Percent Auto 6.3 % (3-14); Neutrophils Absolute Auto 6500 /uL (1500-7000); Neutrophils Percent Auto 58.7 % (50-75); Platelet Count 528 X10^3/uL (150-400); Red Blood Cell Count 4.48 X10^6/uL (4.0-5.2); Red Cell Distribution Width 15.2 % (11.6-14.8); White Blood Cell Count 11.1 X10^3/uL (4.5-11.0)
[2020-10-27 01:04] LABS: Alanine Aminotransferase 112 IU/L (<35); Albumin 4.3 g/dL (3.5-5.0); Alkaline Phosphatase 91 U/L (38-126); Aspartate Aminotransferase 110 IU/L (14-36); BUN Creatinine Ratio 17.5 (6-22); Bilirubin Total 0.3 mg/dL (0.2-1.3); Blood Urea Nitrogen 11 mg/dL (7-17); Calcium 9.6 mg/dL (8.4-10.2); Carbon Dioxide 27 mmol/L (22-32); Chloride 103 mmol/L (98-107); Estimated Glomerular Filt Rate > 60.0 mL/min (>60); Globulin 4.3 g/dL (1.7-4.1); Glucose 129 mg/dL (70-100); HEMOLYSIS 49 (0-50); Potassium 4.3 mmol/L (3.4-5.1); Sodium 139 mmol/L (137-145); Total Protein 8.6 g/dL (6.3-8.2)
--- NOTE | 2020-10-27 01:14 | ED.NEUROSD ---
HPI - Neuro Symptoms/Deficit <Shimon Edouard MD - Last Filed: 11/15/20 07:16> General Chief Complaint: Neuro Symptoms/Deficit Stated Complaint: Blurred vision right eye Time Seen by Provider: 10/27/20 00:41 Source: patient Mode of arrival: Ambulatory Limitations: no limitations History of Present Illness HPI Narrative: Stroke protocol followed for patient's complaints. Immediate CT head stroke protocol with angiogram ordered. Patient complains at 2:30 a.m. this afternoon while at work, she is a dental hygienist, she had episode of mild diffuse headache and states she ?blanked out?. She was in a seated position. She awoke to hear her employer asking if she was okay. No seizure activity described to her by her employer. No bowel or bladder incontinence. No facial droop slurred speech or numbness tingling to the hands or feet or limbs. No altered mental status. No vision changes at the time. Later in the day, tonight at 9:30 p.m. patient had right eye blurry vision for 30 meds until 10:00 p.m.. Had mild head discomfort/headache. Again no numbness tingling weakness facial droop slurred speech. No family history of arrhythmia or stroke. Patient denies any history arrhythmia or migraine headaches or seizures. No history of hypertension. Currently denies any symptoms. No complaints On Anticoagulants: No Related Data Previous Rx's Medication Instructions Recorded albuterol sulfate 90 mcg/actuation 2 puff INHALATION Q4-6H PRN #8.5 07/20/19 aerosol inhaler gram inhalational spacing device #1 each 07/20/19 ibuprofen 600 mg PO QID PRN #20 tab 10/04/19 norethindrone 1.5 mg-ethinyl 1 tab PO DAILY #84 tab 04/28/20 estradiol 30 mcg(21)/iron 75 mg(7) tablet levothyroxine 150 mcg tablet See Rx Instructions .ROUTE 08/31/20 .COMPLEX #60 tab hydroxyzine HCl 10 mg tablet 10 mg PO BID PRN #60 tab 10/28/20 Allergies Allergy/AdvReac Type Severity Reaction Status Date / Time No Known Drug Allergies Allergy Verified 10/31/20 14:48 Review of Systems <Shimon Edouard MD - Last Filed: 11/15/20 07:16> Review of Systems Narrative: GENERAL: Denies chills, fatigue, malaise, fever, sweats. HEENT: Denies sinus pain, ear pain, sore throat RESPIRATORY: Denies dyspnea, cough CARDIOVASCULAR: Denies chest pain, palpitations, complains of syncope GASTROINTESTINAL: Denies nausea, vomiting, abdominal pain : Denies dysuria, frequency, hematuria MUSCULOSKELETAL: denies muscle or bony pain SKIN: Denies rash, skin lesions NEUROLOGIC: Denies weakness, numbness, complains of headache, blurry vision ROS Unobtainable: All systems reviewed & are unremarkable except as noted in HPI and below Hematologic/Lymphatic On Anticoagulants: No Patient History <Shimon Edouard MD - Last Filed: 11/15/20 07:16> Medical History Asthma Fatigue after COVID-19 vaccination Fatty liver disease, nonalcoholic Hypothyroid Iron deficiency anemia Menometrorrhagia Menorrhagia Surgical History Anesthesia H/O wisdom tooth extraction (~01/2016) Family History Father No problems noted. Social History Smoking Status: Never smoker Smoking Status: Never smoker alcohol intake frequency: holidays/special occasions only Substance Use Type: does not use Exam <Shimon Edouard MD - Last Filed: 11/15/20 07:16> Narrative Exam Narrative: GENERAL: in no distress, not toxic not dyspneic HEAD: Normocephalic. EYES: Pupils equal round No scleral icterus. No injection no discharge ENT: Mucous membranes moist. NECK: Trachea midline. CARDIOVASCULAR: Regular rate and rhythm without murmurs RESPIRATORY: Clear to auscultation. Breath sounds equal bilaterally. No wheezes, rales, or rhonchi. GASTROINTESTINAL: Abdomen soft, non-tender EXTREMITIES: No gross deformities. BACK: No flank tenderness. NEURO: AOx4. Clear speech no facial droop. Light touch intact to bilateral face hands and feet. Strong equal cotton acreage measurer bilaterally and ankle flexion hip flexion and knee flexion. Strong bilateral patellar reflexes. No pronator drift. SKIN: Warm and dry PSYCH: Not anxious, is cooperative Initial Vital Signs Initial Vital Signs: Vital Signs Temperature 98.4 F 10/27/20 00:47 Pulse Rate 87 10/27/20 00:47 Respiratory Rate 15 10/27/20 00:47 Blood Pressure 138/87 10/27/20 00:47 Pulse Oximetry 100 10/27/20 00:47 <Javi Pelayo DO - Last Filed: 10/27/20 11:18> Initial Vital Signs Initial Vital Signs: Vital Signs Temperature 98.4 F 10/27/20 00:47 Pulse Rate 87 10/27/20 00:47 Respiratory Rate 15 10/27/20 00:47 Blood Pressure 138/87 10/27/20 00:47 Pulse Oximetry 100 10/27/20 00:47 Scores <Shimon Edouard MD - Last Filed: 11/15/20 07:16> NIH Stroke Scale Level of Conciousness: Alert, keenly responsive Ask month/age: Answers both questions correctly. Open/close eyes, close hand: Performs both tasks correctly Best gaze horizontal: Normal Visual munoz: No visual loss Facial palsy: Normal symetrical movement Left arm drift: No drift for full 10 sec Right arm drift: No drift for full 10 sec Left leg drift: No drift for full 5 sec Right leg drift: No drift for full 5 sec Limb ataxia: Absent Sensory on face/arms/legs: Normal, no sensory loss Best language: No aphasia, normal Dysarthria: Normal Extinction or inattention: No abnormality Total NIH Stroke scale score: 0 Course <Shimon Edouard MD - Last Filed: 11/15/20 07:16> Course Course Narrative: 1:29 a.m., CT scan head resulted no acute process by overnight radiologist 1:[address] angiogram head and neck resulted. No acute process 7:00 a.m.. Sign out to Dr. Pelayo, MRI of brain with without contrast pending. If no acute process can be discharged with outpatient follow-up with [facility]rology Orders Ordered: Discontinued Medications Sodium Chloride (Normal Saline 0.9%) 1,000 mls @ 1,000 mls/hr IV BOLUS ONE Stop: 10/27/20 01:40 Last Infusion: 10/27/20 03:29 Dose: 0 mls/hr Documented by: Admin: 10/27/20 02:15 Dose: 1,000 mls/hr Documented by: MANISHA Reevaluation(s) Reevaluation #1: Patient remains asymptomatic at this time since arrival. Reviewed results with patient and my discussion with [facility]. She agrees with treatment plan. She will stay here this morning in the emergency department and await for MRI in the morning Time: 04:10 Consultations Consultation #1: Spoke with [facility] stroke team. Dr. gamble, at this time does not appear like stroke. No tPA. Symptoms have resolved. No indication for tPA. Would need MRI. As far as urgency, patient has had 2 episodes in less than 9 hours. Would encourage observation and MRI Time: 02:07 Consultation #2: Spoke with [facility] neurologist Dr. Madden, he recommends patient not to be transferred. He states patient can stay here in the emergency department and await for MRI in the morning. MRI of the brain with and without contrast. If no acute findings can follow up with [facility] Neurology. He states clinically likely complex migraine Time: 04:11 Vital Signs Vital signs: Vital Signs - 8 hr 10/27/20 04:18 10/27/20 04:30 10/27/20 05:00 Pulse Rate 84 85 85 Respiratory Rate 22 22 Blood Pressure Pulse Oximetry 98 95 10/27/20 05:30 10/27/20 06:00 10/27/20 06:31 Pulse Rate 85 84 91 H Respiratory Rate 21 20 19 Blood Pressure Pulse Oximetry 94 95 98 10/27/20 07:00 10/27/20 07:38 10/27/20 07:39 Pulse Rate 89 98 H 97 H Respiratory Rate 21 22 13 Blood Pressure 124/63 Pulse Oximetry 99 10/27/20 08:01 Pulse Rate 102 H Respiratory Rate 18 Blood Pressure Pulse Oximetry <Javi Pelayo, DO - Last Filed: 10/27/20 11:18> Orders Ordered: Discontinued Medications Sodium Chloride (Normal Saline 0.9%) 1,000 mls @ 1,000 mls/hr IV BOLUS ONE Stop: 10/27/20 01:40 Last Infusion: 10/27/20 03:29 Dose: 0 mls/hr Documented by: Admin: 10/27/20 02:15 Dose: 1,000 mls/hr Documented by: MANISHA Vital Signs Vital signs: Vital Signs - 8 hr 10/27/20 04:18 10/27/20 04:30 10/27/20 05:00 Pulse Rate 84 85 85 Respiratory Rate 22 22 Blood Pressure Pulse Oximetry 98 95 10/27/20 05:30 10/27/20 06:00 10/27/20 06:31 Pulse Rate 85 84 91 H Respiratory Rate 21 20 19 Blood Pressure Pulse Oximetry 94 95 98 10/27/20 07:00 10/27/20 07:38 10/27/20 07:39 Pulse Rate 89 98 H 97 H Respiratory Rate 21 22 13 Blood Pressure 124/63 Pulse Oximetry 99 10/27/20 08:01 Pulse Rate 102 H Respiratory Rate 18 Blood Pressure Pulse Oximetry MDM - Neuro Symptoms/Deficit <Shimon Edouard MD - Last Filed: 11/15/20 07:16> Differential Diagnosis Differential diagnosis: Likely cerebrovascular accident, transient cerebral ischemia and other (Ocular migraine/atypical migraine/absent seizure) Lab Data Attestation: I reviewed the patient's lab results. Result diagrams: 10/27/20 00:45 10/27/20 00:45 Labs: Lab Results 10/27/20 10/27/20 10/27/20 Range/Units 00:45 00:45 00:45 WBC 11.1 H (4.5-11.0) X10^3/uL RBC 4.48 (4.0-5.2) X10^6/uL Hgb 10.1 L (12.0-16.0) g/dL Hct 32.4 L (36-46) % MCV 72.3 L (80-100) fL MCH 22.5 L (26-34) PG MCHC 31.2 (30-36) % RDW 15.2 H (11.6-14.8) % Plt Count 528 H (150-400) X10^3/uL Neut % (Auto) 58.7 (50-75) % Lymph % (Auto) 29.6 (25-40) % [place] % (Auto) 6.3 (3-14) % Eos % (Auto) 4.3 H (2-4) % Baso % (Auto) 1.1 (0-2) % Neut # (Auto) 6500 (4927-0743) /uL Lymph # (Auto) 3300 (0531-7178) /uL [place] # (Auto) 700 (0-900) /uL Eos # (Auto) 500 H (0-450) /uL Baso # (Auto) 100 (0-100) /uL Sodium 139 (137-145) mmol/L Potassium 4.3 (3.4-5.1) mmol/L Chloride 103 (98-107) mmol/L Carbon Dioxide 27 (22-32) mmol/L BUN 11 (7-17) mg/dL Creatinine 0.63 (0.52-1.04) mg/dL Estimated GFR > 60.0 (>60) mL/min BUN/Creatinine Ratio 17.5 (6-22) Glucose 129 H (70-100) mg/dL Calcium 9.6 (8.4-10.2) mg/dL Total Bilirubin 0.3 (0.2-1.3) mg/dL AST 110 H (14-36) IU/L ALT 112 H (<35) IU/L Alkaline Phosphatase 91 (38-126) U/L Total Protein 8.6 H (6.3-8.2) g/dL Albumin 4.3 (3.5-5.0) g/dL Globulin 4.3 H (1.7-4.1) g/dL Albumin/Globulin Ratio 1.0 (1.0-2.8) TSH 14.1 H (0.47-4.68) uIU/mL Free T4 1.20 (0.78-2.19) ng/dL Free T3 4.17 (2.77-5.27) pg/mL U Opiates 300ng/mL cut (Negative) Ur Oxycodone Screen (Negative) Urine Methadone Screen (Negative) Ur Barbiturates Screen (Negative) U Tricyclic Antidepress (Negative) Ur Phencyclidine Scrn (Negative) Ur Amphetamines Screen (Negative) U Methamphetamines Scrn (Negative) Ur MDMA Scrn (Ecstasy) (Negative) U Benzodiazepines Scrn (Negative) Urine Cocaine Screen (Negative) U Marijuana (THC) Screen (Negative) 10/27/20 Range/Units 01:37 WBC (4.5-11.0) X10^3/uL RBC (4.0-5.2) X10^6/uL Hgb (12.0-16.0) g/dL Hct (36-46) % MCV (80-100) fL MCH (26-34) PG MCHC (30-36) % RDW (11.6-14.8) % Plt Count (150-400) X10^3/uL Neut % (Auto) (50-75) % Lymph % (Auto) (25-40) % [place] % (Auto) (3-14) % Eos % (Auto) (2-4) % Baso % (Auto) (0-2) % Neut # (Auto) (4447-1011) /uL Lymph # (Auto) (7478-6917) /uL [place] # (Auto) (0-900) /uL Eos # (Auto) (0-450) /uL Baso # (Auto) (0-100) /uL Sodium (137-145) mmol/L Potassium (3.4-5.1) mmol/L Chloride (98-107) mmol/L Carbon Dioxide (22-32) mmol/L BUN (7-17) mg/dL Creatinine (0.52-1.04) mg/dL Estimated GFR (>60) mL/min BUN/Creatinine Ratio (6-22) Glucose (70-100) mg/dL Calcium (8.4-10.2) mg/dL Total Bilirubin (0.2-1.3) mg/dL AST (14-36) IU/L ALT (<35) IU/L Alkaline Phosphatase (38-126) U/L Total Protein (6.3-8.2) g/dL Albumin (3.5-5.0) g/dL Globulin (1.7-4.1) g/dL Albumin/Globulin Ratio (1.0-2.8) TSH (0.47-4.68) uIU/mL Free T4 (0.78-2.19) ng/dL Free T3 (2.77-5.27) pg/mL U Opiates 300ng/mL cut Negative (Negative) Ur Oxycodone Screen Negative (Negative) Urine Methadone Screen Negative (Negative) Ur Barbiturates Screen Negative (Negative) U Tricyclic Antidepress Negative (Negative) Ur Phencyclidine Scrn Negative (Negative) Ur Amphetamines Screen Negative (Negative) U Methamphetamines Scrn Negative (Negative) Ur MDMA Scrn (Ecstasy) Negative (Negative) U Benzodiazepines Scrn Negative (Negative) Urine Cocaine Screen Negative (Negative) U Marijuana (THC) Screen Negative (Negative) Point of Care Testing Test Results Negative Urine Dip Bedside Urine Glucose Negative Bedside Urine Bilirubin - Negative Bedside Urine Ketone - Negative Urine Specific [place] 1.015 Bedside Urine Occult Blood +++ Bedside Urine pH 6 Bedside Urine Protein + 30 Bedside Urine Urobilinogen - Negative Bedside Urine Nitrite - Negative Bedside Urine Leukocytes - Negative Esterase Imaging Data CT scan - head: Radiologist's Impression: CT scan head without contrast read by overnight radiologist impression no acute process CT angiogram head and neck: Radiologist's Impression: CT angiogram of head and neck read by overnight Radiology impression no definite acute vascular abnormality. ECG Data Attestation: I personally reviewed and interpreted this ECG as follows: Interpretation: Sinus rhythm rate [address] elevation or depression <Javi Pelayo DO - Last Filed: 10/27/20 11:18> Lab Data Attestation: I reviewed the patient's lab results. Labs: Lab Results 10/27/20 10/27/20 10/27/20 Range/Units 00:45 00:45 00:45 WBC 11.1 H (4.5-11.0) X10^3/uL RBC 4.48 (4.0-5.2) X10^6/uL Hgb 10.1 L (12.0-16.0) g/dL Hct 32.4 L (36-46) % MCV 72.3 L (80-100) fL MCH 22.5 L (26-34) PG MCHC 31.2 (30-36) % RDW 15.2 H (11.6-14.8) % Plt Count 528 H (150-400) X10^3/uL Neut % (Auto) 58.7 (50-75) % Lymph % (Auto) 29.6 (25-40) % [place] % (Auto) 6.3 (3-14) % Eos % (Auto) 4.3 H (2-4) % Baso % (Auto) 1.1 (0-2) % Neut # (Auto) 6500 (2157-3118) /uL Lymph # (Auto) 3300 (1866-9003) /uL [place] # (Auto) 700 (0-900) /uL Eos # (Auto) 500 H (0-450) /uL Baso # (Auto) 100 (0-100) /uL Sodium 139 (137-145) mmol/L Potassium 4.3 (3.4-5.1) mmol/L Chloride 103 (98-107) mmol/L Carbon Dioxide 27 (22-32) mmol/L BUN 11 (7-17) mg/dL Creatinine 0.63 (0.52-1.04) mg/dL Estimated GFR > 60.0 (>60) mL/min BUN/Creatinine Ratio 17.5 (6-22) Glucose 129 H (70-100) mg/dL Calcium 9.6 (8.4-10.2) mg/dL Total Bilirubin 0.3 (0.2-1.3) mg/dL AST 110 H (14-36) IU/L ALT 112 H (<35) IU/L Alkaline Phosphatase 91 (38-126) U/L Total Protein 8.6 H (6.3-8.2) g/dL Albumin 4.3 (3.5-5.0) g/dL Globulin 4.3 H (1.7-4.1) g/dL Albumin/Globulin Ratio 1.0 (1.0-2.8) TSH 14.1 H (0.47-4.68) uIU/mL Free T4 1.20 (0.78-2.19) ng/dL Free T3 4.17 (2.77-5.27) pg/mL U Opiates 300ng/mL cut (Negative) Ur Oxycodone Screen (Negative) Urine Methadone Screen (Negative) Ur Barbiturates Screen (Negative) U Tricyclic Antidepress (Negative) Ur Phencyclidine Scrn (Negative) Ur Amphetamines Screen (Negative) U Methamphetamines Scrn (Negative) Ur MDMA Scrn (Ecstasy) (Negative) U Benzodiazepines Scrn (Negative) Urine Cocaine Screen (Negative) U Marijuana (THC) Screen (Negative) 10/27/20 Range/Units 01:37 WBC (4.5-11.0) X10^3/uL RBC (4.0-5.2) X10^6/uL Hgb (12.0-16.0) g/dL Hct (36-46) % MCV (80-100) fL MCH (26-34) PG MCHC (30-36) % RDW (11.6-14.8) % Plt Count (150-400) X10^3/uL Neut % (Auto) (50-75) % Lymph % (Auto) (25-40) % [place] % (Auto) (3-14) % Eos % (Auto) (2-4) % Baso % (Auto) (0-2) % Neut # (Auto) (8785-1414) /uL Lymph # (Auto) (2225-6259) /uL [place] # (Auto) (0-900) /uL Eos # (Auto) (0-450) /uL Baso # (Auto) (0-100) /uL Sodium (137-145) mmol/L Potassium (3.4-5.1) mmol/L Chloride (98-107) mmol/L Carbon Dioxide (22-32) mmol/L BUN (7-17) mg/dL Creatinine (0.52-1.04) mg/dL Estimated GFR (>60) mL/min BUN/Creatinine Ratio (6-22) Glucose (70-100) mg/dL Calcium (8.4-10.2) mg/dL Total Bilirubin (0.2-1.3) mg/dL AST (14-36) IU/L ALT (<35) IU/L Alkaline Phosphatase (38-126) U/L Total Protein (6.3-8.2) g/dL Albumin (3.5-5.0) g/dL Globulin (1.7-4.1) g/dL Albumin/Globulin Ratio (1.0-2.8) TSH (0.47-4.68) uIU/mL Free T4 (0.78-2.19) ng/dL Free T3 (2.77-5.27) pg/mL U Opiates 300ng/mL cut Negative (Negative) Ur Oxycodone Screen Negative (Negative) Urine Methadone Screen Negative (Negative) Ur Barbiturates Screen Negative (Negative) U Tricyclic Antidepress Negative (Negative) Ur Phencyclidine Scrn Negative (Negative) Ur Amphetamines Screen Negative (Negative) U Methamphetamines Scrn Negative (Negative) Ur MDMA Scrn (Ecstasy) Negative (Negative) U Benzodiazepines Scrn Negative (Negative) Urine Cocaine Screen Negative (Negative) U Marijuana (THC) Screen Negative (Negative) Point of Care Testing Test Results Negative Urine Dip Bedside Urine Glucose Negative Bedside Urine Bilirubin - Negative Bedside Urine Ketone - Negative Urine Specific [place] 1.015 Bedside Urine Occult Blood +++ Bedside Urine pH 6 Bedside Urine Protein + 30 Bedside Urine Urobilinogen - Negative Bedside Urine Nitrite - Negative Bedside Urine Leukocytes - Negative Esterase Imaging Data MR brain: Radiologist's Impression: [facility] [place] [id number] Resonance ReportSigned Patient: Ray Mckinney VMR#: [id number]: 1995Acct:[id number]/Sex: 25 / FDate of Service: 10/27/20Loc: EDAccession Number: [id number] Procedure: MR head/brain wo/w con Ordering Provider: Shimon Edouard MD PROCEDURE: MR HEAD/BRAIN WO/W CON INDICATIONS: Headache/visual distortion TECHNIQUE: Noncontrast axial T1 spin echo, axial T2 fast spin echo, sagittal and axial FLAIR, coronal T2 fast spin echo, axial gradient echo, axial diffusion and ADC through the brain. After the administration of contrast, axial and coronal 3D VIBE or T1 spin echo with fat saturation through the brain. COMPARISON: [facility], CT, CT STROKE, 10/27/2020, 0:50. [facility], CT, CT ANGIO HEAD AND NECK, 10/27/2020, 0:50. FINDINGS: Image quality: Excellent. CSF Spaces: Basal cisterns are patent. No extra-axial fluid collections. Ventricles are normal in size and shape. Brain: No midline shift. No intracranial bleeds or masses. No abnormal intracranial enhancement. The brainstem appears normal. Diffusion-weighted images demonstrate no acute ischemic insults. No chronic ischemic insults. Normal intravascular flow voids are present. Skull and face: Calvarial marrow is normal in signal. Orbits appear normal. Sinuses: Sinuses and mastoids appear clear. IMPRESSION: No acute intracranial abnormality. Dictated by: Guanakito Oro M.D. on 10/27/2020 at 11:00 Approved by: Guanakito Oro M.D. on 10/27/2020 at 11:04 [facility] Narrative Medical decision making narrative: Dr Pelayo: Received turned over. Reviewed patient's history and physical and radiologic studies performed up to this point. Waiting for MRI results which was subsequently unremarkable. Unsure the exact etiology of the patient's syncope. She states that her headache is much better. Does not appear to be mass, tumor, electrolyte issue, hypoglycemia. Did not appear that this was a seizure. We did discuss the possibility of cardiac arrhythmias in informed her she needed to talk with her primary doctor about further workup of this if indicated. Patient is safe for discharge home. She was given return precautions and she expressed understanding and agreement. Discharge Plan Departure Patient Disposition: Home Clinical Impression: Syncope Instructions: DI for Syncope in Adults (Fainting) Activity Restrictions/Additional Instructions: Your workup here in the emergency department is very reassuring. I do recommend that you contact your primary doctor for a follow-up in continue all of your medications as directed. Return to the emergency department for any new or worsening symptoms Prescriptions: No Action (DME) Aerochamber MV Spacer See Rx Instructions .ROUTE .MEDSUPPLY Qty: 1 RF: 0 albuterol sulfate 90 mcg/actuation HFA aerosol inhaler 2 puff INHALATION Q4-6H PRN (Reason: shortness of breath or wheezing) Qty: 8.5 RF: 0 levothyroxine 150 mcg tablet See Rx Instructions .ROUTE .COMPLEX Qty: 60 RF: 0 norethindrone-e.estradiol-iron [Loestrin Fe 1.5/30 (28-Day)] 1.5 mg-30 mcg (21)/75 mg (7) tablet 1 tab PO DAILY Qty: 84 RF: 1 hydroxyzine HCl 10 mg tablet 10 mg PO BID PRN (Reason: anxiety) Qty: 60 RF: 0 ibuprofen 600 mg tablet 600 mg PO QID PRN (Reason: fever or pain) Qty: 20 RF: 0 Referrals: Ravi Lee MD [Primary Care Provider] - Stand Alone Forms: Work Release Note
--- NOTE | 2020-10-27 01:18 | PC.NURSE ---
Describes blurry vision as wavy like a prism, but only in a [place], not her whole field of vision. Generalized weakness after an episode of going out and then coming to.
[2020-10-27 01:43] LABS: UR Morphine/Opiate cutoff 300 Negative (Negative); Ur Creatinine Normal (Normal); Ur Specific Gravity Normal (Normal); Urine Amphetamines Negative (Negative); Urine Barbiturates Negative (Negative); Urine Benzodiazepines Negative (Negative); Urine Cocaine Negative (Negative); Urine MDMA Negative (Negative); Urine Methadone Negative (Negative); Urine Methamphetamines Negative (Negative); Urine Oxycodone Negative (Negative); Urine Phencyclidine Negative (Negative); Urine Tetrahydrocannabinol Negative (Negative); Urine Tricyclic Antidepressant Negative (Negative); Urine pH Normal (Normal)
[2020-10-27] MEDS: SODIUM CHLORIDE 0.9% 1,000 ML 1000 ML IV (02:15)
--- NOTE | 2020-10-27 04:12 | DI.MRI.S_ITS ---
PROCEDURE: MR HEAD/BRAIN WO/W CON INDICATIONS: Headache/visual distortion TECHNIQUE: Noncontrast axial T1 spin echo, axial T2 fast spin echo, sagittal and axial FLAIR, coronal T2 fast spin echo, axial gradient echo, axial diffusion and ADC through the brain. After the administration of contrast, axial and coronal 3D VIBE or T1 spin echo with fat saturation through the brain. COMPARISON: [facility], CT, CT STROKE, 10/27/2020, 0:50. [facility], CT, CT ANGIO HEAD AND NECK, 10/27/2020, 0:50. FINDINGS: Image quality: Excellent. CSF Spaces: Basal cisterns are patent. No extra-axial fluid collections. Ventricles are normal in size and shape. Brain: No midline shift. No intracranial bleeds or masses. No abnormal intracranial enhancement. The brainstem appears normal. Diffusion-weighted images demonstrate no acute ischemic insults. No chronic ischemic insults. Normal intravascular flow voids are present. Skull and face: Calvarial marrow is normal in signal. Orbits appear normal. Sinuses: Sinuses and mastoids appear clear. IMPRESSION: No acute intracranial abnormality. Dictated by: Guanakito Oro M.D. on 10/27/2020 at 11:00 Approved by: Guanakito Oro M.D. on 10/27/2020 at 11:04
[2020-10-27 10:01] LABS: Free T3, Triiodothyronine Free 4.17 pg/mL (2.77-5.27)
[2020-10-27 10:15] LABS: Thyroid Stimulating Hormone 14.1 uIU/mL (0.47-4.68)
== END 2020-10-27 11:39 | disposition home or self-care (01) ==
PROVIDERS: Emergency Medicine; Emergency Provider Emergency Medicine; PCP Family Medicine
DX: R55 Syncope and collapse (principal); R51.9 Headache, unspecified
CPT/HCPCS: 36415; 70450; 70496; 70498; 70553; 80053; 80305; 81003; 81025; 84439; 84443; 84481; 85025; 93005; 96360; 99284; 99285; Q9967

== ENCOUNTER 2020-10-31 14:44 | Emergency (ER) | payer OTHER, SELFPAY ==
[2020-10-31 14:49] VITALS: BP 130/85; PULSE 86; RESP 19; TEMP 36.8; O2SAT 100; BMI 50.1
--- NOTE | 2020-10-31 14:56 | DI.RAD.S_ITS ---
PROCEDURE: XR CHEST 1V INDICATIONS: chest pain TECHNIQUE: One view of the chest was acquired. COMPARISON: [facility], CR, XR CHEST 1V, 10/04/2019, 5:02. FINDINGS: Surgical changes and devices: None. Lungs and pleura: Lungs are clear. No pleural effusions or pneumothorax. Mediastinum: Mediastinal contours appear normal. Heart size is normal. Bones and chest wall: No suspicious bony lesions. Overlying soft tissues appear unremarkable. IMPRESSION: No acute cardiopulmonary abnormality. Dictated by: Franky Marin M.D. on 10/31/2020 at 15:12 Approved by: Franky Marin M.D. on 10/31/2020 at 15:15
[2020-10-31 15:29] LABS: Appearance Urine UA CLEAR; Bilirubin Urine UA NEGATIVE (NEGATIVE); Color Urine UA YELLOW; Glucose Urine UA NEGATIVE (Negative); Ketones Urine UA NEGATIVE (NEGATIVE); Leukocyte Esterase Urine UA TRACE (NEGATIVE); Nitrite Urine UA NEGATIVE (Negative); Occult Blood Urine UA 3+ (Negative); Protein Urine UA NEGATIVE (Negative); Specific Gravity Urine UA 1.015 (1.000-1.035); Urobilinogen Urine UA 0.2 E.U./dL (0.2)
[2020-10-31 15:33] LABS: Pregnancy Test Urine Negative (Negative)
[2020-10-31 15:34] LABS: Bacteria Urine Few (2-10); Culture Indicated Urine Cult Not Indicated; RBC Urine 5-10/HPF (0-5/HPF); Squamous Epithelial Cell Urine 5-10 /HPF (0-5/HPF); WBC Urine 1-5/HPF (0-5/HPF)
--- NOTE | 2020-10-31 15:38 | ED.CHESTPAIN ---
HPI - Chest Pain <ANGELINA Solomon-BC - Last Filed: 10/31/20 18:57> General Chief Complaint: Chest Pain Stated Complaint: Chest Pain Time Seen by Provider: 10/31/20 15:07 Source: patient Mode of arrival: Family Vehicle Limitations: no limitations History of Present Illness HPI narrative: The patient is a 25-year-old female nonsmoker with history of anxiety who presents with a chief complaint of chest pain on and off for the past few days. She states that it comes and goes, started a few days ago but has been more consistent for the past hour and a half. She does endorse anxiety for which she has seen his primary care provider, she states that this is worsened by her anemia and several health difficulties lately requiring several referrals including referral to GI and concerns about swollen lymph nodes. She endorses transient shortness of breath. She has no known coronavirus exposure. She was vaccinated. She states after her 1st vaccine, she had palpitations and she came to the emergency department for those. Was seen in the emergency department on 10/27/2020 for stroke-like symptoms and was eventually diagnosed with a migraine. Note she stopped taking her hydroxyzine that was given to her for anxiety several days ago because she does not like that it make her tired. Then her chest pain started. She denies any swelling of her extremities. She states she gets palpitations when she is anxious and take slow deep breaths when needed. Related Data Previous Rx's Medication Instructions Recorded albuterol sulfate 90 mcg/actuation 2 puff INHALATION Q4-6H PRN #8.5 07/20/19 aerosol inhaler gram inhalational spacing device #1 each 07/20/19 ibuprofen 600 mg PO QID PRN #20 tab 10/04/19 norethindrone 1.5 mg-ethinyl 1 tab PO DAILY #84 tab 04/28/20 estradiol 30 mcg(21)/iron 75 mg(7) tablet levothyroxine 150 mcg tablet See Rx Instructions .ROUTE 08/31/20 .COMPLEX #60 tab hydroxyzine HCl 10 mg tablet 10 mg PO BID PRN #60 tab 10/28/20 Allergies Allergy/AdvReac Type Severity Reaction Status Date / Time No Known Drug Allergies Allergy Verified 10/31/20 14:48 Review of Systems <LINA Solomon - Last Filed: 10/31/20 18:57> Review of Systems Narrative: GENERAL: Denies chills, fatigue, malaise, fever, sweats. HEENT: Denies sinus pain, ear pain, sore throat, difficulty swallowing, dizziness. RESPIRATORY: Denies dyspnea, cough, wheezing, hemoptysis, sputum. CARDIOVASCULAR: See HPI GASTROINTESTINAL: Denies nausea, vomiting, abdominal pain, diarrhea, constipation, melena. : Denies dysuria, frequency, incontinence, hematuria, urinary retention. MUSCULOSKELETAL: denies weakness, joint pain, or bony pain SKIN: Denies rash, skin lesions, or other NEUROLOGIC: Denies weakness, headache, numbness, change in speech, confusion, seizures, incoordination. PSYCHIATRIC: See HPI 12 point review of systems is negative except for those stated above Patient History <LINA Solomon - Last Filed: 10/31/20 18:57> Medical History Asthma Fatigue after COVID-19 vaccination Fatty liver disease, nonalcoholic Hypothyroid Iron deficiency anemia Menometrorrhagia Menorrhagia Surgical History Anesthesia H/O wisdom tooth extraction (~01/2016) Family History Father No problems noted. Social History Smoking Status: Never smoker Smoking Status: Never smoker alcohol intake frequency: holidays/special occasions only Substance Use Type: does not use Exam <LINA Solomon - Last Filed: 10/31/20 18:57> Narrative Exam Narrative: GENERAL: This is a well-nourished, well-developed patient, no acute distress HEAD: Atraumatic. Normocephalic. No temporal or scalp tenderness. EYES: Pupils equal round and reactive. Extraocular motions intact. No scleral icterus. No injection or drainage. ENT: Nose without bleeding, purulent drainage or septal hematoma. Throat without erythema, tonsillar hypertrophy or exudate. Uvula midline. Airway patent. NECK: Trachea midline. No JVD or lymphadenopathy. Supple, nontender, no meningeal signs. CARDIOVASCULAR: Regular rate and rhythm RESPIRATORY: Clear to auscultation. Breath sounds equal bilaterally. No wheezes, rales, or rhonchi. No cough. No increased respiratory effort. No accessory muscle use. Speaking full sentences. GASTROINTESTINAL: Abdomen soft, non-tender, nondistended. No hepato-splenomegaly, or palpable masses. No guarding. EXTREMITIES: No clubbing, cyanosis, or edema. No joint tenderness, effusion, or edema noted. BACK: Nontender without deformity or crepitance. No flank tenderness. NEURO: AOx3. Appears anxious, teary at times SKIN: No rash or erythema. Initial Vital Signs Initial Vital Signs: Vital Signs Temperature 98.3 F 10/31/20 14:49 Pulse Rate 86 10/31/20 14:49 Respiratory Rate 19 10/31/20 14:49 Blood Pressure 130/85 10/31/20 14:49 Pulse Oximetry 100 10/31/20 14:49 <Skye Singh DO - Last Filed: 11/04/20 07:41> Initial Vital Signs Initial Vital Signs: Vital Signs Temperature 98.3 F 10/31/20 14:49 Pulse Rate 86 10/31/20 14:49 Respiratory Rate 19 10/31/20 14:49 Blood Pressure 130/85 10/31/20 14:49 Pulse Oximetry 100 10/31/20 14:49 Course <NEPTALI SolomonBC - Last Filed: 10/31/20 18:57> Orders Ordered: ED Orders 10/31/20 14:55 EKG-12 Lead Stat 10/31/20 14:56 XR chest 1V Stat 10/31/20 15:25 Test Urine Stat Urinalysis and Microscopic Stat 10/31/20 15:39 Consult to [facility] [place] [employer]er Stat 10/31/20 15:52 Complete Blood Count AUTO DIFF Stat Comprehensive Metabolic Panel Stat D Dimer Stat Lipase Stat Magnesium Stat Troponin & CK Cardiac Panel Stat Vital Signs Vital signs: Vital Signs - 8 hr 10/31/20 14:49 Temperature 98.3 F Pulse Rate 86 Respiratory Rate 19 Blood Pressure 130/85 Pulse Oximetry 100 <Skye Singh DO - Last Filed: 11/04/20 07:41> Orders Ordered: ED Orders 10/31/20 14:55 EKG-12 Lead Stat 10/31/20 14:56 XR chest 1V Stat 10/31/20 15:25 Test Urine Stat Urinalysis and Microscopic Stat 10/31/20 15:39 Consult to TECHNICAL WRITING LEAD/MGR - Upholstery Cleaner Stat 10/31/20 15:52 Complete Blood Count AUTO DIFF Stat Comprehensive Metabolic Panel Stat D Dimer Stat Lipase Stat Magnesium Stat Troponin & CK Cardiac Panel Stat Vital Signs Vital signs: Vital Signs - 8 hr 10/31/20 14:49 Temperature 98.3 F Pulse Rate 86 Respiratory Rate 19 Blood Pressure 130/85 Pulse Oximetry 100 MDM - Chest Pain <ANGELINA Solomon- - Last Filed: 10/31/20 18:57> Lab Data Attestation: I reviewed the patient's lab results. Result diagrams: 10/31/20 15:52 10/31/20 15:52 Labs: Lab Results 10/31/20 10/31/20 10/31/20 Range/Units 15:25 15:25 15:52 WBC 13.3 H (4.5-11.0) X10^3/uL RBC 4.41 (4.0-5.2) X10^6/uL Hgb 10.1 L (12.0-16.0) g/dL Hct 31.6 L (36-46) % MCV 71.6 L (80-100) fL MCH 22.9 L (26-34) PG MCHC 32.1 (30-36) % RDW 15.0 H (11.6-14.8) % Plt Count 569 H (150-400) X10^3/uL Neut % (Auto) 75.6 H (50-75) % Lymph % (Auto) 17.1 L (25-40) % Gray % (Auto) 5.2 (3-14) % Eos % (Auto) 1.1 L (2-4) % Baso % (Auto) 1.0 (0-2) % Neut # (Auto) 14591 H (1677-8627) /uL Lymph # (Auto) 2300 (4673-6423) /uL Gray # (Auto) 700 (0-900) /uL Eos # (Auto) 200 (0-450) /uL Baso # (Auto) 100 (0-100) /uL D-Dimer (<230) ng/mL Sodium (137-145) mmol/L Potassium (3.4-5.1) mmol/L Chloride (98-107) mmol/L Carbon Dioxide (22-32) mmol/L BUN (7-17) mg/dL Creatinine (0.52-1.04) mg/dL Estimated GFR (>60) mL/min BUN/Creatinine Ratio (6-22) Glucose (70-100) mg/dL Calcium (8.4-10.2) mg/dL Magnesium (1.6-2.3) mg/dL Total Bilirubin (0.2-1.3) mg/dL AST (14-36) IU/L ALT (<35) IU/L Alkaline Phosphatase (38-126) U/L Total Creatine Kinase (30-135) U/L CK-MB (CK-2) CK-MB (CK-2) Rel Index Troponin I (0.01-0.034) ng/mL Total Protein (6.3-8.2) g/dL Albumin (3.5-5.0) g/dL Globulin (1.7-4.1) g/dL Albumin/Globulin Ratio (1.0-2.8) Lipase (23-300) U/L Urine Color Yellow Urine Appearance Clear Urine pH 6.0 (4.5-8.0) Ur Specific [place] 1.015 (1.000-1.035) Urine Protein Negative (Negative) Urine Glucose (UA) Negative (Negative) g/dL Urine Ketones Negative (NEGATIVE) Urine Occult Blood 3+ H (Negative) Urine Nitrate Negative (Negative) Urine Bilirubin Negative (NEGATIVE) Urine Urobilinogen 0.2 (0.2) E.U./dL Ur Leukocyte Esterase Trace H (NEGATIVE) Urine RBC 5-10/hpf H (0-5/HPF) Urine WBC 1-5/hpf (0-5/HPF) Ur Squamous Epith Cells 5-10 /hpf H (0-5/HPF) Urine Bacteria Few (2-10) H (None) Ur Culture Indicated? Cult not indicated Urine Test Negative (Negative) 10/31/20 10/31/20 10/31/20 Range/Units 15:52 15:52 15:52 WBC (4.5-11.0) X10^3/uL RBC (4.0-5.2) X10^6/uL Hgb (12.0-16.0) g/dL Hct (36-46) % MCV (80-100) fL MCH (26-34) PG MCHC (30-36) % RDW (11.6-14.8) % Plt Count (150-400) X10^3/uL Neut % (Auto) (50-75) % Lymph % (Auto) (25-40) % Gray % (Auto) (3-14) % Eos % (Auto) (2-4) % Baso % (Auto) (0-2) % Neut # (Auto) (0931-3295) /uL Lymph # (Auto) (0566-9864) /uL Gray # (Auto) (0-900) /uL Eos # (Auto) (0-450) /uL Baso # (Auto) (0-100) /uL D-Dimer 242 H (<230) ng/mL Sodium 139 (137-145) mmol/L Potassium 4.6 (3.4-5.1) mmol/L Chloride 102 (98-107) mmol/L Carbon Dioxide 27 (22-32) mmol/L BUN 10 (7-17) mg/dL Creatinine 0.62 (0.52-1.04) mg/dL Estimated GFR > 60.0 (>60) mL/min BUN/Creatinine Ratio 16.1 (6-22) Glucose 104 H (70-100) mg/dL Calcium 10.1 (8.4-10.2) mg/dL Magnesium 2.2 (1.6-2.3) mg/dL Total Bilirubin 0.3 (0.2-1.3) mg/dL AST 67 H (14-36) IU/L ALT 85 H (<35) IU/L Alkaline Phosphatase 97 (38-126) U/L Total Creatine Kinase 50 (30-135) U/L CK-MB (CK-2) TNP CK-MB (CK-2) Rel Index TNP Troponin I < 0.012 (0.01-0.034) ng/mL Total Protein 9.1 H (6.3-8.2) g/dL Albumin 4.6 (3.5-5.0) g/dL Globulin 4.5 H (1.7-4.1) g/dL Albumin/Globulin Ratio 1.0 (1.0-2.8) Lipase 45 (23-300) U/L Urine Color Urine Appearance Urine pH (4.5-8.0) Ur Specific [place] (1.000-1.035) Urine Protein (Negative) Urine Glucose (UA) (Negative) g/dL Urine Ketones (NEGATIVE) Urine Occult Blood (Negative) Urine Nitrate (Negative) Urine Bilirubin (NEGATIVE) Urine Urobilinogen (0.2) E.U./dL Ur Leukocyte Esterase (NEGATIVE) Urine RBC (0-5/HPF) Urine WBC (0-5/HPF) Ur Squamous Epith Cells (0-5/HPF) Urine Bacteria (None) Ur Culture Indicated? Urine Test (Negative) Imaging Data Chest x-ray: Radiologist's Impression: [address] [place] [id number] ReportSigned Patient: Ray Mckinney VMR#: [id number]: 1995Acct:[id number]/Sex: 25 / FDate of Service: 10/31/20Loc: EDAccession Number: [id number] Procedure: XR chest 1V Ordering Provider: Skye Singh D.O. PROCEDURE: XR CHEST 1V INDICATIONS: chest pain TECHNIQUE: One view of the chest was acquired. COMPARISON: [facility], , XR CHEST 1V, 10/04/2019, 5:02. FINDINGS: Surgical changes and devices: None. Lungs and pleura: Lungs are clear. No pleural effusions or pneumothorax. Mediastinum: Mediastinal contours appear normal. Heart size is normal. Bones and chest wall: No suspicious bony lesions. Overlying soft tissues appear unremarkable. IMPRESSION: No acute cardiopulmonary abnormality. Dictated by: Franky Marin M.D. on 10/31/2020 at 15:12 Approved by: Franky Marin M.D. on 10/31/2020 at 15:15 ECG Data Attestation: I personally reviewed and interpreted this ECG as follows: Interpretation: The sinus rhythm. Ventricular rate 88. P.r. interval 148. QRS 92. viewed by Dr Singh MDM Narrative Medical decision making narrative: The patient is a 25-year-old female who presents with a chief complaint of chest pain over the past few days. Her EKG has no acute findings. Chest x-ray is no acute findings. Troponin is negative. She does endorse anxiety and I believe that this might be likely contributing to her chest pain. She is anemic but her hemoglobin has been stable for the past several days. I offered to give her a dose of hydroxyzine in the emergency department, as she states she is too nervous to take it. I discussed that we can monitor her here to see if that helps and keep an eye on her, however she declines. Encouraged her to consider taking her anxiety medication again, discussed that sedation can be normal with this medication. S that she should come back to the emergency department for any acute concerns. Given her anxiety and lack of counseling, I did place an TECHNICAL WRITING LEAD/MGR referral so she was given resources by LIAM Benítez. Patient has no questions or concerns upon discharge states understanding return precautions as well as follow-up care. She has been hemodynamically stable nontoxic appearing throughout her stay in the ER <Skye Singh, DO - Last Filed: 11/04/20 07:41> Lab Data Labs: Lab Results 10/31/20 10/31/20 10/31/20 Range/Units 15:25 15:25 15:52 WBC 13.3 H (4.5-11.0) X10^3/uL RBC 4.41 (4.0-5.2) X10^6/uL Hgb 10.1 L (12.0-16.0) g/dL Hct 31.6 L (36-46) % MCV 71.6 L (80-100) fL MCH 22.9 L (26-34) PG MCHC 32.1 (30-36) % RDW 15.0 H (11.6-14.8) % Plt Count 569 H (150-400) X10^3/uL Neut % (Auto) 75.6 H (50-75) % Lymph % (Auto) 17.1 L (25-40) % Gray % (Auto) 5.2 (3-14) % Eos % (Auto) 1.1 L (2-4) % Baso % (Auto) 1.0 (0-2) % Neut # (Auto) 76170 H (8780-0309) /uL Lymph # (Auto) 2300 (7112-4091) /uL Gray # (Auto) 700 (0-900) /uL Eos # (Auto) 200 (0-450) /uL Baso # (Auto) 100 (0-100) /uL D-Dimer (<230) ng/mL Sodium (137-145) mmol/L Potassium (3.4-5.1) mmol/L Chloride (98-107) mmol/L Carbon Dioxide (22-32) mmol/L BUN (7-17) mg/dL Creatinine (0.52-1.04) mg/dL Estimated GFR (>60) mL/min BUN/Creatinine Ratio (6-22) Glucose (70-100) mg/dL Calcium (8.4-10.2) mg/dL Magnesium (1.6-2.3) mg/dL Total Bilirubin (0.2-1.3) mg/dL AST (14-36) IU/L ALT (<35) IU/L Alkaline Phosphatase (38-126) U/L Total Creatine Kinase (30-135) U/L CK-MB (CK-2) CK-MB (CK-2) Rel Index Troponin I (0.01-0.034) ng/mL Total Protein (6.3-8.2) g/dL Albumin (3.5-5.0) g/dL Globulin (1.7-4.1) g/dL Albumin/Globulin Ratio (1.0-2.8) Lipase (23-300) U/L Urine Color Yellow Urine Appearance Clear Urine pH 6.0 (4.5-8.0) Ur Specific [place] 1.015 (1.000-1.035) Urine Protein Negative (Negative) Urine Glucose (UA) Negative (Negative) g/dL Urine Ketones Negative (NEGATIVE) Urine Occult Blood 3+ H (Negative) Urine Nitrate Negative (Negative) Urine Bilirubin Negative (NEGATIVE) Urine Urobilinogen 0.2 (0.2) E.U./dL Ur Leukocyte Esterase Trace H (NEGATIVE) Urine RBC 5-10/hpf H (0-5/HPF) Urine WBC 1-5/hpf (0-5/HPF) Ur Squamous Epith Cells 5-10 /hpf H (0-5/HPF) Urine Bacteria Few (2-10) H (None) Ur Culture Indicated? Cult not indicated Urine Test Negative (Negative) 10/31/20 10/31/20 10/31/20 Range/Units 15:52 15:52 15:52 WBC (4.5-11.0) X10^3/uL RBC (4.0-5.2) X10^6/uL Hgb (12.0-16.0) g/dL Hct (36-46) % MCV (80-100) fL MCH (26-34) PG MCHC (30-36) % RDW (11.6-14.8) % Plt Count (150-400) X10^3/uL Neut % (Auto) (50-75) % Lymph % (Auto) (25-40) % Gray % (Auto) (3-14) % Eos % (Auto) (2-4) % Baso % (Auto) (0-2) % Neut # (Auto) (3849-5234) /uL Lymph # (Auto) (5871-1196) /uL Gray # (Auto) (0-900) /uL Eos # (Auto) (0-450) /uL Baso # (Auto) (0-100) /uL D-Dimer 242 H (<230) ng/mL Sodium 139 (137-145) mmol/L Potassium 4.6 (3.4-5.1) mmol/L Chloride 102 (98-107) mmol/L Carbon Dioxide 27 (22-32) mmol/L BUN 10 (7-17) mg/dL Creatinine 0.62 (0.52-1.04) mg/dL Estimated GFR > 60.0 (>60) mL/min BUN/Creatinine Ratio 16.1 (6-22) Glucose 104 H (70-100) mg/dL Calcium 10.1 (8.4-10.2) mg/dL Magnesium 2.2 (1.6-2.3) mg/dL Total Bilirubin 0.3 (0.2-1.3) mg/dL AST 67 H (14-36) IU/L ALT 85 H (<35) IU/L Alkaline Phosphatase 97 (38-126) U/L Total Creatine Kinase 50 (30-135) U/L CK-MB (CK-2) TNP CK-MB (CK-2) Rel Index TNP Troponin I < 0.012 (0.01-0.034) ng/mL Total Protein 9.1 H (6.3-8.2) g/dL Albumin 4.6 (3.5-5.0) g/dL Globulin 4.5 H (1.7-4.1) g/dL Albumin/Globulin Ratio 1.0 (1.0-2.8) Lipase 45 (23-300) U/L Urine Color Urine Appearance Urine pH (4.5-8.0) Ur Specific [place] (1.000-1.035) Urine Protein (Negative) Urine Glucose (UA) (Negative) g/dL Urine Ketones (NEGATIVE) Urine Occult Blood (Negative) Urine Nitrate (Negative) Urine Bilirubin (NEGATIVE) Urine Urobilinogen (0.2) E.U./dL Ur Leukocyte Esterase (NEGATIVE) Urine RBC (0-5/HPF) Urine WBC (0-5/HPF) Ur Squamous Epith Cells (0-5/HPF) Urine Bacteria (None) Ur Culture Indicated? Urine Test (Negative) Discharge Plan Departure Patient Disposition: Home Clinical Impression: Chest pain Qualifiers: Chest pain type: unspecified Qualified Code(s): R07.9 - Chest pain, unspecified Instructions: DI for Atypical Chest Pain, DI for Anxiety -- Adult, DI for Chest Pain Activity Restrictions/Additional Instructions: Thank you for trusting us with your care today. As discussed, please follow-up with primary care provider in the next few days. I also suggest following through with resources that Jackelin gave you regarding anxiety Please come back to the emergency department for any acute concerns. As discussed, your lab work was reassuring today. As was your EKG, your chest x-ray and your vital signs. Please come back to the emergency department for any acute concerns. Prescriptions: No Action (DME) Aerochamber MV Spacer See Rx Instructions .ROUTE .MEDSUPPLY Qty: 1 RF: 0 albuterol sulfate 90 mcg/actuation HFA aerosol inhaler 2 puff INHALATION Q4-6H PRN (Reason: shortness of breath or wheezing) Qty: 8.5 RF: 0 levothyroxine 150 mcg tablet See Rx Instructions .ROUTE .COMPLEX Qty: 60 RF: 0 norethindrone-e.estradiol-iron [Loestrin Fe 1.5/30 (28-Day)] 1.5 mg-30 mcg (21)/75 mg (7) tablet 1 tab PO DAILY Qty: 84 RF: 1 hydroxyzine HCl 10 mg tablet 10 mg PO BID PRN (Reason: anxiety) Qty: 60 RF: 0 ibuprofen 600 mg tablet 600 mg PO QID PRN (Reason: fever or pain) Qty: 20 RF: 0 Referrals: Ravi Lee MD [Primary Care Provider] - <Skye Singh DO - Last Filed: 11/04/20 07:41> Cosign ED Attending Shell Attestation: I was immediately available in the department for consultation. Documentation has been reviewed. I agree with assessment and plan.
[2020-10-31 16:03] LABS: Add Manual Diff / Slide Review NO; Basophils Absolute Auto 100 /uL (0-100); Eosinophils Absolute Auto 200 /uL (0-450); Eosinophils Percent Auto 1.1 % (2-4); Hematocrit 31.6 % (36-46); Hemoglobin 10.1 g/dL (12.0-16.0); Lymphocytes Absolute Auto 2300 /uL (1100-4500); Lymphocytes Percent Auto 17.1 % (25-40); Mean Corpuscular HGB Conc 32.1 % (30-36); Mean Corpuscular Hemoglobin 22.9 PG (26-34); Mean Corpuscular Volume 71.6 fL (80-100); Monocytes Absolute Auto 700 /uL (0-900); Monocytes Percent Auto 5.2 % (3-14); Neutrophils Absolute Auto 10000 /uL (1500-7000); Neutrophils Percent Auto 75.6 % (50-75); Platelet Count 569 X10^3/uL (150-400); Red Blood Cell Count 4.41 X10^6/uL (4.0-5.2); White Blood Cell Count 13.3 X10^3/uL (4.5-11.0)
[2020-10-31 16:17] LABS: Alanine Aminotransferase 85 IU/L (<35); Albumin 4.6 g/dL (3.5-5.0); Alkaline Phosphatase 97 U/L (38-126); Aspartate Aminotransferase 67 IU/L (14-36); BUN Creatinine Ratio 16.1 (6-22); Bilirubin Total 0.3 mg/dL (0.2-1.3); Blood Urea Nitrogen 10 mg/dL (7-17); Calcium 10.1 mg/dL (8.4-10.2); Carbon Dioxide 27 mmol/L (22-32); Chloride 102 mmol/L (98-107); Creatine Kinase 50 U/L (30-135); Estimated Glomerular Filt Rate > 60.0 mL/min (>60); Globulin 4.5 g/dL (1.7-4.1); Glucose 104 mg/dL (70-100); HEMOLYSIS < 15 (0-50); Lipase 45 U/L (23-300); Potassium 4.6 mmol/L (3.4-5.1); Sodium 139 mmol/L (137-145); Total Protein 9.1 g/dL (6.3-8.2)
[2020-10-31 16:23] LABS: Magnesium 2.2 mg/dL (1.6-2.3)
[2020-10-31 16:27] LABS: D Dimer 242 ng/mL (<230)
[2020-10-31 16:28] LABS: Troponin I < 0.012 ng/mL (0.01-0.034)
--- NOTE | 2020-10-31 17:16 | CM.SWNOTE ---
SCHOOL JANITOR Note SCHOOL JANITOR receives consult and meets with patient, also present is patient's cousin. Patient is 25 y/o female presents to this ED with chest pain. Patient reports this is her 3rd ED visit in a week. Patient states she had a f/u appt with PCP Dr. Ravi Lee on Saturday10/28/20 and has another f/u appt scheduled for Saturday11/04/20. Patient reports ongoing concerns regarding her thyroid, Iron deficiency, and chest pain. Patient states she called Dr. Lee's office today and she was informed to go to the ED due to concerns for chest pain. Patient reports concern for recent anxiety. Patient states that she believes all fo the dx and appts for potential dx being a cause of her anxiety. Patient states she is looking for MH providers. Patient denies self harm, SI and HI. Patient states that she wants to shut down when she has trouble breathing but reports no ways and means to shut down. Patient states walking has helped in the past to manage anxiety. Patient asks SCHOOL JANITOR about breathing techniques, SCHOOL JANITOR discusses square breathing technique. Patient reports that her , friends and family are a support to her. Patient states she has upcoming PCP appt, appt with gastro specialist and an ultrasound next week. SCHOOL JANITOR provides list of MH providers that take patient's insurance and practice locally. Patient reports she will discuss BHIP with PCP and seeking a MH provider at next appt as well. SCHOOL JANITOR reviews the above with ED provider LINA Solomon and she indicates agreement and understanding. Plan: Patient to d/c home when medically clear. LIAM Contreras
== END 2020-10-31 18:50 | disposition home or self-care (01) ==
PROVIDERS: Emergency Medicine; Emergency Provider Nurse Practitioner Family; PCP Family Medicine
DX: R07.9 Chest pain, unspecified (principal)
CPT/HCPCS: 36415; 71045; 80053; 81001; 81025; 82550; 83690; 83735; 84484; 85025; 85379; 93005; 99283; 99284

== ENCOUNTER → 2020-11-02 07:03 | Outpatient (CLI) | payer OTHER, SELFPAY ==
--- NOTE | 2020-11-02 07:06 | DI.US.S_ITS ---
PROCEDURE: US THYROID INDICATIONS: ELEVATED TSH; ENLARGED LYMPH NODES TECHNIQUE: Real-time scanning was performed of the thyroid gland, with image documentation. COMPARISON: None. FINDINGS: Right: Thyroid lobe appears relatively atrophic, and measures 1.1 x 0.6 x 1.7 cm, and is homogeneous in echotexture except for presence of several punctate calcifications without nodule at the junction of the [id number] thirds of the right thyroid lobe.. Left: Thyroid lobe also appears relatively atrophic and measures 1.5 x 0.6 x 1.6 cm, and is homogenous in echotexture. Isthmus: 1.2 mm thick. IMPRESSION: Relatively atrophic thyroid gland bilaterally, without identifiable nodule. This may represent sequela of prior thyroiditis. No enlarged lymph nodes are found along the thyroid borders bilaterally. No thyroid nodules present. Dictated by: Calixto Farooq M.D. on 11/02/2020 at 11:22 Approved by: Calixto Farooq M.D. on 11/02/2020 at 11:25
== END ==
PROVIDERS: PCP Family Medicine; Referring Provider Family Medicine; Visit Provider Family Medicine
DX: E03.9 Hypothyroidism, unspecified (principal); R59.0 Localized enlarged lymph nodes; R94.6 Abnormal results of thyroid function studies
CPT/HCPCS: 76536

== ENCOUNTER → 2020-11-11 14:41 | Outpatient (CLI) | payer OTHER, SELFPAY ==
--- NOTE | 2020-11-11 14:43 | DI.US.S_ITS ---
PROCEDURE: US SOFT TISSUE HEAD AND NECK INDICATIONS: ENLARGED NODES ON CT. EVALUATE ALL NECK LYMPHNODE CHAINS. TECHNIQUE: Real-time scanning was performed of the neck region of interest, with image documentation. COMPARISON: [facility], CT, CT ANGIO HEAD AND NECK, 10/27/2020, 0:50. [facility], US, US THYROID, 11/02/2020, 7:26. FINDINGS: Exam limited by body habitus. Sonographically, no definite anterior or posterior cervical chain pathologically enlarged lymph node is identified bilaterally. Unclear if this represents limitations of ultrasound and body habitus relative to the recent CT comparison study dated 10/27/20, or interval resolution/improvement since the prior exam. Elsewhere, no discrete mass or focal fluid collection. IMPRESSION: No sonographically visible pathologically enlarged lymph nodes. Recommend clinical management. Please see discussion above and if there is persistent clinical concern, future follow-up recommended with contrast enhanced CT neck. Dictated by: Asa Mercado M.D. on 11/11/2020 at 16:22 Approved by: Asa Mercado M.D. on 11/11/2020 at 16:29
== END ==
PROVIDERS: PCP Family Medicine; Referring Provider Family Medicine; Visit Provider Family Medicine
DX: E03.9 Hypothyroidism, unspecified (principal); R59.0 Localized enlarged lymph nodes
CPT/HCPCS: 76536

== ENCOUNTER 2020-11-27 19:20 | Emergency (ER) | payer OTHER, SELFPAY ==
[2020-11-27 19:26] VITALS: BP 160/101; PULSE 93; RESP 18; TEMP 36.7; O2SAT 97; BMI 51.0
[2020-11-27 19:49] LABS: Bacteria Urine None Seen
[2020-11-27 19:57] LABS: Culture Indicated Urine Cult Not Indicated; RBC Urine 0-1/HPF (0-5/HPF); Squamous Epithelial Cell Urine 1-5 /HPF (0-5/HPF); WBC Urine 0-1/HPF (0-5/HPF)
[2020-11-27 20:16] LABS: Add Manual Diff / Slide Review NO; Basophils Absolute Auto 100 /uL (0-100); Basophils Percent Auto 0.6 % (0-2); Eosinophils Absolute Auto 200 /uL (0-450); Eosinophils Percent Auto 1.6 % (2-4); Hematocrit 34.7 % (36-46); Hemoglobin 10.9 g/dL (12.0-16.0); Lymphocytes Absolute Auto 3500 /uL (1100-4500); Lymphocytes Percent Auto 29.4 % (25-40); Mean Corpuscular HGB Conc 31.2 % (30-36); Mean Corpuscular Volume 73.5 fL (80-100); Monocytes Absolute Auto 800 /uL (0-900); Monocytes Percent Auto 6.8 % (3-14); Neutrophils Absolute Auto 7300 /uL (1500-7000); Neutrophils Percent Auto 61.6 % (50-75); Platelet Count 552 X10^3/uL (150-400); Red Blood Cell Count 4.73 X10^6/uL (4.0-5.2); Red Cell Distribution Width 16.5 % (11.6-14.8); White Blood Cell Count 11.9 X10^3/uL (4.5-11.0)
[2020-11-27] MEDS: SODIUM CHLORIDE 0.9% 1,000 ML 1000 ML IV (20:23)
[2020-11-27 20:31] LABS: BUN Creatinine Ratio 11.5 (6-22); Blood Urea Nitrogen 7 mg/dL (7-17); Calcium 10.2 mg/dL (8.4-10.2); Carbon Dioxide 26 mmol/L (22-32); Chloride 103 mmol/L (98-107); Estimated Glomerular Filt Rate > 60.0 mL/min (>60); Glucose 94 mg/dL (70-100); HEMOLYSIS < 15 (0-50); Potassium 4.5 mmol/L (3.4-5.1); Sodium 139 mmol/L (137-145)
[2020-11-27 20:43] LABS: Troponin I < 0.012 ng/mL (0.01-0.034)
--- NOTE | 2020-11-27 20:58 | ED.ARRPALP ---
HPI - Arrhythmia/Palpitations General Chief Complaint: Arrhythmia/Palpitations Stated Complaint: DIZZY/LIGHT HEADED/HEART PALPATATIONS Time Seen by Provider: 11/27/20 19:33 Source: patient Mode of arrival: Ambulatory Limitations: no limitations History of Present Illness HPI narrative: 25-year-old female nonsmoker presents with significant other and a chief complaint of brief episodes of palpitations over the past few days. Additionally she states she that she has had brief episodes of sharp and stabbing pain in her left anterior chest. She denies any obvious provocation or palliation of this pain. She states there is no radiation. Patient states that she has been a bit lightheaded when sitting or standing over the past few days. She denies any nausea, vomiting or diarrhea. She denies any dietary change or change in medications. She has had no runny nose, sore throat or cough. She denies recent travel, history of blood clot or cancer. Related Data Previous Rx's Medication Instructions Recorded albuterol sulfate 90 mcg/actuation 2 puff INHALATION Q4-6H PRN #8.5 07/20/19 aerosol inhaler gram inhalational spacing device #1 each 07/20/19 (Aerochamber MV) ibuprofen 600 mg tablet 600 mg PO QID PRN #20 tab 10/04/19 norethindrone 1.5 mg-ethinyl 1 tab PO DAILY #84 tab 04/28/20 estradiol 30 mcg(21)/iron 75 mg(7) tablet (Loestrin Fe 1.5/30 (28-Day)) levothyroxine 150 mcg tablet See Rx Instructions .ROUTE 08/31/20 .COMPLEX #60 tab hydroxyzine HCl 10 mg tablet 10 mg PO BID PRN #60 tab 10/28/20 Allergies Allergy/AdvReac Type Severity Reaction Status Date / Time No Known Drug Allergies Allergy Verified 10/31/20 14:48 Review of Systems Review of Systems Narrative: GENERAL: See HPI HEENT: Denies sinus pain, ear pain, sore throat, difficulty swallowing, dizziness. RESPIRATORY: See HPI CARDIOVASCULAR: See HPI GASTROINTESTINAL: Denies nausea, vomiting, abdominal pain, diarrhea, constipation, melena. : Denies dysuria, frequency, incontinence, hematuria, urinary retention. MUSCULOSKELETAL: denies weakness, joint pain, or bony pain SKIN: Denies rash, skin lesions, or other NEUROLOGIC: Admits to dizziness Denies weakness, headache, numbness, change in speech, confusion, seizures, incoordination. PSYCHIATRIC: No concerning psychosocial issues. 12 point review of systems is negative except for those stated above Patient History Medical History Asthma Fatigue after COVID-19 vaccination Fatty liver disease, nonalcoholic Hypothyroid Iron deficiency anemia Menometrorrhagia Menorrhagia Surgical History Anesthesia H/O wisdom tooth extraction (~01/2016) Family History Father No problems noted. Social History Smoking Status: Never smoker Smoking Status: Never smoker alcohol intake frequency: holidays/special occasions only Substance Use Type: does not use Exam Narrative Exam Narrative: GENERAL: [25] year old patient appears stated age. Well-developed patient, in mild distress. Anxious and tearful HEAD: Atraumatic. Normocephalic. EYES: Pupils equal round and reactive. Extraocular motions intact. No scleral icterus. No injection or drainage. ENT: Nose without bleeding, purulent drainage. Throat without erythema, tonsillar hypertrophy or exudate. Airway patent. No tympanic membrane effusions NECK: Trachea midline. Non tender CARDIOVASCULAR: Regular rate and rhythm without murmurs, gallops, or rubs. RESPIRATORY: Clear to auscultation. Breath sounds equal bilaterally. No wheezes, rales, or rhonchi. GASTROINTESTINAL: Abdomen soft, non-tender, nondistended. EXTREMITIES: No edema or joint tenderness. BACK: Nontender without deformity or crepitance. No flank tenderness. NEURO: AOx3. SKIN: No rash or erythema of visible areas NIH Stroke Scale 1a. LOC: Patient is alert and keenly responsive (0) 1b. LOC Questions: Patient answers both LOC questions accurately (0) 1c. LOC Commands: Patient performs both tasks correctly (0) 2. Best Gaze: Normal (0) 3. Visual: No visual loss (0) 4. Facial palsy: Normal symmetrical movements (0) 5. Motor arm: No drift (0) 6. Motor leg: No drift (0) 7. Limb ataxia: Absent (0) 8. Sensory: Normal (0) 9. Best language: No aphasia; normal (0) 10. Dysarthria: Normal (0) 11. Extinction and inattention: No abnormality (0) NIHSS: 0 Initial Vital Signs Initial Vital Signs: Vital Signs Temperature 98.1 F 11/27/20 19:26 Pulse Rate 93 H 11/27/20 19:26 Respiratory Rate 18 11/27/20 19:26 Blood Pressure 160/101 H 11/27/20 19:26 Pulse Oximetry 97 11/27/20 19:26 Scores Wells' Criteria for PE Clinical signs and symptoms of DVT: No PE is #1 Dx or equally likely: No Heart rate > 100: No Immobilization at least 3 days or surg in previous 4 weeks: No History of PE or DVT: No Hemoptysis: No Malignancy w/Treatment within 6 months or palliative: No Wells' PE Score total: 0 Course Course Course Narrative: Patient feeling much better after fluids, no longer dizzy. Orders Ordered: Discontinued Medications Sodium Chloride (Normal Saline 0.9%) 1,000 mls @ 1,000 mls/hr IV BOLUS ONE Stop: 11/27/20 20:58 Last Infusion: 11/27/20 21:42 Dose: 0 mls/hr Documented by: Admin: 11/27/20 20:23 Dose: 1,000 mls/hr Documented by: CLAUDIO Vital Signs Vital signs: Vital Signs - 8 hr 11/27/20 19:26 Temperature 98.1 F Pulse Rate 93 H Respiratory Rate 18 Blood Pressure 160/101 H Pulse Oximetry 97 MDM - Arrhythmia/Palpitations Differential Diagnosis Differential diagnosis: Likely palpitations, anxiety, sinus tachycardia, artial fibrillation, artial flutter, ventricular premature beats, supraventricular tachycardia, ventricular tachycardia, WPW and other Lab Data Result diagrams: 11/27/20 20:10 11/27/20 20:10 Labs: Lab Results 11/27/20 11/27/20 11/27/20 Range/Units 19:39 20:10 20:10 WBC 11.9 H (4.5-11.0) X10^3/uL RBC 4.73 (4.0-5.2) X10^6/uL Hgb 10.9 L (12.0-16.0) g/dL Hct 34.7 L (36-46) % MCV 73.5 L (80-100) fL MCH 23.0 L (26-34) PG MCHC 31.2 (30-36) % RDW 16.5 H (11.6-14.8) % Plt Count 552 H (150-400) X10^3/uL Neut % (Auto) 61.6 (50-75) % Lymph % (Auto) 29.4 (25-40) % [place] % (Auto) 6.8 (3-14) % Eos % (Auto) 1.6 L (2-4) % Baso % (Auto) 0.6 (0-2) % Neut # (Auto) 7300 H (5580-1279) /uL Lymph # (Auto) 3500 (4674-1124) /uL [place] # (Auto) 800 (0-900) /uL Eos # (Auto) 200 (0-450) /uL Baso # (Auto) 100 (0-100) /uL Sodium 139 (137-145) mmol/L Potassium 4.5 (3.4-5.1) mmol/L Chloride 103 (98-107) mmol/L Carbon Dioxide 26 (22-32) mmol/L BUN 7 (7-17) mg/dL Creatinine 0.61 (0.52-1.04) mg/dL Estimated GFR > 60.0 (>60) mL/min BUN/Creatinine Ratio 11.5 (6-22) Glucose 94 (70-100) mg/dL Calcium 10.2 (8.4-10.2) mg/dL Troponin I < 0.012 (0.01-0.034) ng/mL TSH (0.47-4.68) uIU/mL Urine RBC 0-1/hpf (0-5/HPF) Urine WBC 0-1/hpf (0-5/HPF) Ur Squamous Epith Cells 1-5 /hpf (0-5/HPF) Urine Bacteria None seen (None) Ur Culture Indicated? Cult not indicated 11/27/20 Range/Units 20:10 WBC (4.5-11.0) X10^3/uL RBC (4.0-5.2) X10^6/uL Hgb (12.0-16.0) g/dL Hct (36-46) % MCV (80-100) fL MCH (26-34) PG MCHC (30-36) % RDW (11.6-14.8) % Plt Count (150-400) X10^3/uL Neut % (Auto) (50-75) % Lymph % (Auto) (25-40) % [place] % (Auto) (3-14) % Eos % (Auto) (2-4) % Baso % (Auto) (0-2) % Neut # (Auto) (5415-0546) /uL Lymph # (Auto) (5717-1737) /uL [place] # (Auto) (0-900) /uL Eos # (Auto) (0-450) /uL Baso # (Auto) (0-100) /uL Sodium (137-145) mmol/L Potassium (3.4-5.1) mmol/L Chloride (98-107) mmol/L Carbon Dioxide (22-32) mmol/L BUN (7-17) mg/dL Creatinine (0.52-1.04) mg/dL Estimated GFR (>60) mL/min BUN/Creatinine Ratio (6-22) Glucose (70-100) mg/dL Calcium (8.4-10.2) mg/dL Troponin I (0.01-0.034) ng/mL TSH 1.77 (0.47-4.68) uIU/mL Urine RBC (0-5/HPF) Urine WBC (0-5/HPF) Ur Squamous Epith Cells (0-5/HPF) Urine Bacteria (None) Ur Culture Indicated? Urine Dip Bedside Urine Glucose Negative Bedside Urine Bilirubin - Negative Bedside Urine Ketone - Negative Urine Specific [place] 1.020 Bedside Urine Occult Blood + Bedside Urine pH 6.0 Bedside Urine Protein - Negative Bedside Urine Urobilinogen - Negative Bedside Urine Nitrite - Negative Bedside Urine Leukocytes - Negative Esterase MDM Narrative Medical decision making narrative: Multiple etiologies for patient's symptoms considered including: [Palpitations, SVT, thyroid abnormality, dehydration, electrolyte abnormality, stroke, anemia pulmonary embolism versus other] Patient's symptoms improved over duration of stay with above-stated therapies and history, physical exam, response to fluids with suggest dehydration Findings and discharge diagnosis discussed with patient/family followed by verbalization of understanding Return precautions discussed with patient/family whom verbalize understanding. Discharge Plan Departure Patient Disposition: Home Clinical Impression: Dizziness, Heart palpitations, Anxiety Instructions: DI for Palpitations Activity Restrictions/Additional Instructions: *You have been diagnosed with [palpitations, episode of chest pain dizziness very reassuring physical exam and labs] *What to do: *Please continue to take your regular medications as directed. [ ] New medication prescriptions sent to your pharmacy: [ ] [ ] New medication written as a paper prescription [x ] No new medications given *Please follow up with your primary care provider in 2-3 days, call for an appointment. Let them know you were seen in the Emergency Department and that we ask that you be seen in follow up. We will electronically transmit a record of today's note if your PCP is in our system *If you do not have a primary care provider please contact the [facility] Resource line at [phone]. They will ask some questions about your medical history and help get you set up with a doctor in the community. *Return to Emergency Department if you should have any new, worsening or concerning symptoms, such as [fever greater than 101 F, shaking chills, worsening pain, persistent vomiting or other bothersome symptoms] Prescriptions: No Action (DME) Aerochamber MV Spacer See Rx Instructions .ROUTE .MEDSUPPLY Qty: 1 RF: 0 albuterol sulfate 90 mcg/actuation HFA aerosol inhaler 2 puff INHALATION Q4-6H PRN (Reason: shortness of breath or wheezing) Qty: 8.5 RF: 0 levothyroxine 150 mcg tablet See Rx Instructions .ROUTE .COMPLEX Qty: 60 RF: 0 norethindrone-e.estradiol-iron [Loestrin Fe 1.5/30 (28-Day)] 1.5 mg-30 mcg (21)/75 mg (7) tablet 1 tab PO DAILY Qty: 84 RF: 1 hydroxyzine HCl 10 mg tablet 10 mg PO BID PRN (Reason: anxiety) Qty: 60 RF: 0 ibuprofen 600 mg tablet 600 mg PO QID PRN (Reason: fever or pain) Qty: 20 RF: 0 Referrals: Ravi Lee MD [Primary Care Provider] -
[2020-11-27 21:11] LABS: TSH w/ Reflex to FT4 1.77 uIU/mL (0.47-4.68)
[2020-11-27 22:03] VITALS: BP 117/78; PULSE 80; RESP 18; TEMP 36.3; O2SAT 98
== END 2020-11-27 22:22 | disposition home or self-care (01) ==
PROVIDERS: Emergency Provider Emergency Medicine; PCP Family Medicine
DX: R00.2 Palpitations (principal); R42 Dizziness and giddiness; F41.9 Anxiety disorder, unspecified; R07.9 Chest pain, unspecified
CPT/HCPCS: 36415; 80048; 81003; 81015; 84443; 84484; 85025; 93005; 96360; 99284

== ENCOUNTER → 2021-01-02 13:35 | Outpatient (CLI) | payer OTHER, SELFPAY ==
[2021-01-02 14:08] LABS: COVID19 -Nasal RAPID Negative (Negative)
== END ==
PROVIDERS: PCP Family Medicine; Visit Provider Nurse Practitioner
DX: J02.9 Acute pharyngitis, unspecified (principal); Z20.822 Contact with and (suspected) exposure to COVID-19; Z87.09 Personal history of other diseases of the respiratory system
CPT/HCPCS: 87070; 87147; 87635

== ENCOUNTER → 2021-01-17 07:17 | Outpatient (CLI) | payer OTHER, SELFPAY ==
[2021-01-17 08:45] LABS: Cholesterol 123 mg/dL (140-199); HDL Cholesterol 26 mg/dL (40-60); LDL Cholesterol Calculated 70 mg/dL (<100); Triglycerides 134 mg/dL (35-150)
== END ==
PROVIDERS: PCP Family Medicine; Referring Provider Family Medicine; Visit Provider Family Medicine
DX: E78.5 Hyperlipidemia, unspecified (principal); K76.0 Fatty (change of) liver, not elsewhere classified; D50.9 Iron deficiency anemia, unspecified
CPT/HCPCS: 36415; 80061; 86900; 86901

== ENCOUNTER → 2021-09-08 17:03 | Outpatient (CLI) | payer OTHER, SELFPAY ==
[2021-09-11 15:08] LABS: Interpretation Negative (Negative)
== END ==
PROVIDERS: PCP Family Medicine; Referring Provider Family Medicine; Visit Provider Family Medicine
DX: R10.12 Left upper quadrant pain (principal)
CPT/HCPCS: 83013

== ENCOUNTER → 2022-06-19 10:56 | Outpatient (CLI) | payer SELFPAY ==
--- NOTE | 2022-06-19 11:07 | DI.RAD.S_ITS ---
PROCEDURE: XR CHEST 2V INDICATIONS: pos PPD. asymptomatic TECHNIQUE: 2 views of the chest were acquired. COMPARISON: None. FINDINGS: Surgical changes and devices: None. Lungs and pleura: Lungs are clear. No pleural effusions or pneumothorax. Mediastinum: Mediastinal contours are normal. Heart size is normal. Bones and chest wall: No suspicious bony abnormalities. Soft tissues appear unremarkable. IMPRESSION: No acute cardiopulmonary process demonstrated radiographically. Dictated by: Guanakito Oro M.D. on 06/19/2022 at 11:30 Approved by: Guanakito Oro M.D. on 06/19/2022 at 11:30
== END ==
PROVIDERS: PCP Family Medicine; Referring Provider Family Medicine; Visit Provider Family Medicine
DX: R76.11 Nonspecific reaction to tuberculin skin test without active tuberculosis (principal)
CPT/HCPCS: 71046

== ENCOUNTER → 2022-06-30 07:29 | Outpatient (CLI) | payer SELFPAY ==
[2022-06-30 09:35] LABS: Influenza A - CEPHEID Flu A NEGATIVE (NEGATIVE); Influenza B - CEPHEID Flu B NEGATIVE (NEGATIVE); Respiratory Syncytial Virus Negative (Negative)
[2022-06-30 10:11] LABS: COVID-19 CEPHEID 4-PLEX PCR Negative (Negative)
== END ==
PROVIDERS: PCP Family Medicine; Visit Provider Nurse Practitioner Family
DX: J02.9 Acute pharyngitis, unspecified (principal)
CPT/HCPCS: 0241U; 87070

== ENCOUNTER → 2022-11-19 10:21 | Outpatient (CLI) | payer OTHER, SELFPAY ==
[2022-11-19 11:04] LABS: Add Manual Diff / Slide Review NO; Basophils Absolute Auto 100 /uL (0-100); Basophils Percent Auto 0.8 % (0-2); Eosinophils Absolute Auto 200 /uL (0-450); Eosinophils Percent Auto 1.9 % (2-4); Hematocrit 37.9 % (36-46); Hemoglobin 12.6 g/dL (12.0-16.0); Lymphocytes Absolute Auto 2800 /uL (1100-4500); Lymphocytes Percent Auto 24.1 % (25-40); Mean Corpuscular HGB Conc 33.2 % (30-36); Mean Corpuscular Hemoglobin 26.3 PG (26-34); Monocytes Absolute Auto 500 /uL (0-900); Monocytes Percent Auto 4.3 % (3-14); Neutrophils Absolute Auto 7900 /uL (1500-7000); Neutrophils Percent Auto 68.9 % (50-75); Platelet Count 441 X10^3/uL (150-400); Red Blood Cell Count 4.79 X10^6/uL (4.0-5.2); Red Cell Distribution Width 14.5 % (11.6-14.8); White Blood Cell Count 11.4 X10^3/uL (4.5-11.0)
[2022-11-19 12:08] LABS: Alanine Aminotransferase 76 IU/L (<35); Albumin Globulin Ratio 0.9 (1.0-2.8); Alkaline Phosphatase 90 U/L (38-126); Aspartate Aminotransferase 75 IU/L (14-36); BUN Creatinine Ratio 15.5 (6-22); Bilirubin Total 0.5 mg/dL (0.2-1.3); Blood Urea Nitrogen 9 mg/dL (7-17); Calcium 9.1 mg/dL (8.4-10.2); Carbon Dioxide 28 mmol/L (22-32); Chloride 100 mmol/L (98-107); Cholesterol 180 mg/dL (140-199); Estimated Glomerular Filt Rate > 60 mL/min (>60); Globulin 4.4 g/dL (1.7-4.1); Glucose 111 mg/dL (70-100); HDL Cholesterol 32 mg/dL (40-60); HEMOLYSIS < 15 (0-50); LDL Cholesterol Calculated 117 mg/dL (<100); Potassium 4.3 mmol/L (3.4-5.1); Sodium 134 mmol/L (137-145); Total Protein 8.4 g/dL (6.3-8.2); Triglycerides 157 mg/dL (35-150)
[2022-11-19 13:24] LABS: Free T4, Direct Thyroxine 0.94 ng/dL (0.78-2.19)
[2022-11-20 07:10] LABS: Labcorp Hemoglobin (Hb) A1c 6.2 % (4.8-5.6)
[2022-11-23 08:25] LABS: Percent Free Testosterone 1.46 % (0.50-2.80); Testosterone Free 0.29 ng/dL (0.10-0.85)
== END ==
PROVIDERS: PCP Family Medicine; Referring Provider Family Medicine; Visit Provider Family Medicine
DX: D50.9 Iron deficiency anemia, unspecified (principal); E03.9 Hypothyroidism, unspecified; F41.9 Anxiety disorder, unspecified; K76.0 Fatty (change of) liver, not elsewhere classified; N92.0 Excessive and frequent menstruation with regular cycle; N92.1 Excessive and frequent menstruation with irregular cycle
CPT/HCPCS: 36415; 80053; 80061; 83036; 84402; 84403; 84439; 84443; 85025

== ENCOUNTER → 2023-03-20 16:52 | Outpatient (CLI) | payer OTHER, SELFPAY ==
[2023-03-20 17:48] LABS: Alanine Aminotransferase 70 IU/L (<35); Albumin 4.1 g/dL (3.5-5.0); Alkaline Phosphatase 75 U/L (38-126); Aspartate Aminotransferase 72 IU/L (14-36); BUN Creatinine Ratio 16.9 (6-22); Bilirubin Total 0.1 mg/dL (0.2-1.3); Blood Urea Nitrogen 10 mg/dL (7-17); Calcium 9.9 mg/dL (8.4-10.2); Carbon Dioxide 28 mmol/L (22-32); Chloride 101 mmol/L (98-107); Estimated Glomerular Filt Rate > 60 mL/min (>60); Globulin 4.2 g/dL (1.7-4.1); Glucose 87 mg/dL (70-100); HEMOLYSIS < 15 (0-50); Sodium 137 mmol/L (137-145); Total Protein 8.3 g/dL (6.3-8.2)
[2023-03-20 18:22] LABS: TSH w/ Reflex to FT4 8.07 uIU/mL (0.47-4.68)
[2023-03-20 19:54] LABS: Free T4, Direct Thyroxine 1.21 ng/dL (0.78-2.19)
[2023-03-22 05:44] LABS: Alpha 1 Anti Trypsin 164 mg/dL (100-188)
[2023-03-25 13:38] LABS: Alpha-1 Globulin, Ur 7.3 % (.); Beta Globulin, Ur 35.1 % (.); Gamma Globulin, Ur 10.5 % (.); M-Spike % Not Observed % (Not Observed); Urine Total Protein 8.5 mg/dL (Not Estab.)
[2023-03-25 16:39] LABS: Albumin 3.2 g/dL (2.9-4.4); Alpha-1-Globulin 0.3 g/dL (0.0-0.4); Gamma Globulin 1.7 g/dL (0.4-1.8); Globulin Total 4.2 g/dL (2.2-3.9); Protein, Total 7.4 g/dL (6.0-8.5)
== END ==
PROVIDERS: PCP Family Medicine; Referring Provider Family Medicine; Visit Provider Family Medicine
DX: K76.0 Fatty (change of) liver, not elsewhere classified (principal); E03.9 Hypothyroidism, unspecified; R77.9 Abnormality of plasma protein, unspecified
CPT/HCPCS: 36415; 80053; 82103; 84155; 84156; 84165; 84166; 84439; 84443

== ENCOUNTER 2023-03-24 16:49 | Emergency (ER) | payer OTHER, SELFPAY ==
[2023-03-24 16:59] VITALS: BP 145/93; PULSE 91; RESP 18; TEMP 36.7; O2SAT 100; BMI 54.8
[2023-03-24 18:21] LABS: COVID19 -Nasal RAPID Negative (Negative)
--- NOTE | 2023-03-24 20:36 | PC.NURSE ---
Pt talking in full sentences, spo2 at 100%
[2023-03-24 20:38] VITALS: BP 120/79; PULSE 86; RESP 19; O2SAT 100
--- NOTE | 2023-03-24 21:21 | ED_ITS ---
HPI - SOB/Dyspnea General Chief Complaint: Shortness of Breath/Dyspnea Stated Complaint: sob Time Seen by Provider: 03/24/23 21:21 Source: patient Mode of arrival: Ambulatory Limitations: no limitations History of Present Illness HPI Narrative: Patient is a 27-year-old female history of hypothyroid history of anemia needing today with increasing shortness of breath. She says for the last 5 days she feels like she must take deep breaths. She had significant shortness of breath with exertion which she typically does not have she feels generally weak. Reports that TSH was 16 few months back they made some adjustments. She actually had iron transfusions after she had a menstrual cycle for 8 months, but reports that has been resolved. She denies any abdominal pain nausea or vomiting. No recent travel but taking control. Related Data Previous Rx's Medication Instructions Recorded inhalational spacing device #1 ea 07/20/19 (Aerochamber MV spacer) ibuprofen 600 mg tablet 600 mg PO QID PRN fever or pain 10/04/19 #20 tabs albuterol sulfate 90 mcg/actuation 2 puff inhalation Q4-6H PRN 09/18/22 aerosol inhaler shortness of breath or wheezing #8.5 grams escitalopram oxalate 10 mg tablet 10 mg PO DAILY #90 tabs 09/18/22 (Lexapro) norethindrone acetate 1 mg-ethinyl 1 tab PO DAILY #63 tabs 09/18/22 estradiol 20 mcg tablet (Loestrin) levothyroxine 150 mcg tablet 150 mcg PO DAILY #30 tabs 01/29/23 Allergies Allergy/AdvReac Type Severity Reaction Status Date / Time No Known Drug Allergies Allergy Verified 03/24/23 16:59 Patient History Medical History (Updated 03/24/23 @ 21:45 by Skye Singh DO) Positive PPD Anxiety Fatigue after COVID-19 vaccination Iron deficiency anemia Fatty liver disease, nonalcoholic Menometrorrhagia Hypothyroid Asthma Menorrhagia Surgical History (Updated 01/04/21 @ 16:13 by Tyron Roach MD) Anesthesia H/O wisdom tooth extraction (~01/2016) Family History Father No problems noted. Social History Smoking Status: Never smoker Smoking Status: Never smoker alcohol intake frequency: holidays/special occasions only Substance Use Type: does not use Exam Initial Vital Signs Initial Vital Signs: Vital Signs Temperature 98.0 F 03/24/23 16:59 Pulse Rate 91 H 03/24/23 16:59 Respiratory Rate 18 03/24/23 16:59 Blood Pressure 145/93 H 03/24/23 16:59 Pulse Oximetry 100 03/24/23 16:59 Oxygen Delivery Method Room Air 03/24/23 16:59 GENERAL: Alert 27-year-old female BMI 54 HEENT: Head atraumatic,EOMI, pupils reactive, face symmetric, moist mucous membranes CARDIOVASCULAR: Regular rate and rhythm without murmurs, rubs or gallops. RESPIRATORY: Breath sounds equal bilaterally, no wheezes rales or rhonchi. Speaks in full sentences no evidence of respiratory distress ABDOMEN: Soft, nontender. Normoactive bowel sounds all 4 quadrants. No guarding or rebound. EXTREMITIES: Normal range of motion, no clubbing or edema. Neurovascularly intact NEUROLOGICAL: Alert and oriented x4.Normal gait and speech. SKIN: Warm, dry, no laceration, no petechiae, no rashes or lesions. Course Orders Ordered: ED Orders 03/24/23 17:00 COVID19 -Nasal RAPID Stat 03/24/23 17:15 EKG-12 Lead Stat Vital Signs Vital signs: Vital Signs - 8 hr 03/24/23 20:38 03/24/23 21:54 Pulse Rate 86 82 Respiratory Rate 19 18 Blood Pressure 120/79 120/80 Pulse Oximetry 100 98 Oxygen Delivery Method Room Air Room Air MDM - SOB/Dyspnea Lab Data Labs: Lab Results 03/24/23 Range/Units 17:00 SARS-CoV-2 (PCR) Negative (Negative) ECG Data Interpretation: Normal sinus rhythm rate 84 [place] interval 154 QRS [address] changes similar to previous EKGs [facility] Narrative Medical decision making narrative: Patient 27-year-old female history of hypothyroidism previous anemia presents today with increasing shortness of breath she is having some productive cough no fever she is having some chills. She reports that she must take deep breaths not if she is actual order breath. COVID test is negative EKG does not show any changes lungs are clear she is absolutely no sign of respiratory distress on exam. Vitals are stable not hypoxic tachycardic or hypotensive. She had electrolytes and thyroid checked March 20. She had a CBC drawn in October with a hemoglobin of 12, lowest her hemoglobin ever was 10.1. And that was in 2020. At this time she is stable vitals some cough slight upper respiratory symptoms no evidence of any sort of respiratory distress I think probably viral. TSH was checked and is still 8 PCP is monitoring and adjusting that medication may or may not be related. She also reports that she weaned herself off Lexapro at this time I see no need for any sort of further workup or evaluation she is followed closely with PCP Discharge Plan Departure Patient Disposition: Home Clinical Impression: Acute upper respiratory infection Instructions: DI for Viral Upper Respiratory Infection -- Adult Activity Restrictions/Additional Instructions: *You have been diagnosed with upper respiratory infection *What to do: At this time please follow-up with your primary care provider I do think that her symptoms might be related to virus. Thyroid is improving but still has a weights to go *Continue to take medications as directed *Follow up with your primary care provider in 2-3 days or call [phone] *Return to ER if you should have increasing chest pain palpitations dizziness passing out lightheadedness or any new, worsening or concerning symptoms Prescriptions: No Action (DME) Aerochamber MV Spacer See Rx Instructions .ROUTE .MEDSUPPLY Qty: 1 0RF Rx Instructions: As directed levothyroxine 150 mcg tablet 150 mcg PO DAILY Qty: 30 0RF Rx Instructions: NO ADDITIONAL REFILLS UNTIL LAB WORK IS COMPLETED. 01/29/23. albuterol sulfate 90 mcg/actuation HFA aerosol inhaler 2 puff inhalation Q4-6H PRN (Reason: shortness of breath or wheezing) Qty: 8.5 0RF escitalopram oxalate [Lexapro] 10 mg tablet 10 mg PO DAILY Qty: 90 1RF norethindrone ac-eth estradiol [Loestrin 06/15 ()] 1-20 mg-mcg tablet 1 tab PO DAILY Qty: 63 3RF ibuprofen 600 mg tablet 600 mg PO QID PRN (Reason: fever or pain) Qty: 20 0RF Referrals: Ravi Lee MD [Primary Care Provider] - Stand Alone Forms: Patient Portal/API
[2023-03-24 21:54] VITALS: BP 120/80; PULSE 82; RESP 18; O2SAT 98
== END 2023-03-24 21:55 | disposition home or self-care (01) ==
PROVIDERS: Emergency Medicine; Emergency Provider Emergency Medicine; PCP Family Medicine
DX: J06.9 Acute upper respiratory infection, unspecified (principal); Z20.822 Contact with and (suspected) exposure to COVID-19
CPT/HCPCS: 87635; 93005; 99282; 99283; C9803

== ENCOUNTER 2023-06-01 19:58 | Emergency (ER) | payer OTHER, SELFPAY ==
[2023-06-01 20:02] VITALS: BP 172/106; PULSE 79; RESP 16; TEMP 37; O2SAT 97; BMI 54.0
[2023-06-01 20:09] VITALS: BP 139/98; PULSE 91; O2SAT 97
[2023-06-01] MEDS: diphenhydrAMINE 50 MG/ML VIAL IM (20:16)
[2023-06-01] MEDS: DEXAMETHASONE 10 MG/ML VIAL PO (20:16)
--- NOTE | 2023-06-01 20:58 | ED.ALLEREA ---
HPI - Allergic Reaction General Chief complaint: Allergic Reaction Stated complaint: allergic rxn/itchy/cold/hot flashes Time Seen by Provider: 06/01/23 20:09 Source: patient Mode of arrival: Ambulatory History of Present Illness HPI narrative: 28-year-old female presents with bilateral upper extremity and chest urticaria with associated pruritus that began around 15:30 after eating in a buffet. Patient reports known food allergy of cinnamon and figs, but does not believe that she consumed any those food items. Patient denies history of similar/prior symptoms and reports that her symptoms associated with consumption of cinnamon/figs are associated with salivary gland swelling. No other complaints or associated symptoms noted. No medications used for symptom relief. Patient arrives via private vehicle. Patient is ambulatory awake, alert, oriented x3, in no apparent distress and maintaining her own airway. Related Data Previous Rx's Medication Instructions Recorded inhalational spacing device #1 ea 07/20/19 (Aerochamber MV spacer) albuterol sulfate 90 mcg/actuation 2 puff inhalation Q4-6H PRN 09/18/22 aerosol inhaler shortness of breath or wheezing #8.5 grams escitalopram oxalate 10 mg tablet 10 mg PO DAILY #90 tabs 06/03/23 (Lexapro) levothyroxine 175 mcg capsule 175 mcg PO DAILY #90 caps 07/12/23 Allergies Allergy/AdvReac Type Severity Reaction Status Date / Time cinnamon Allergy Verified 06/01/23 20:07 Review of Systems Review of Systems Narrative: See HPI for pertinent positives, otherwise review of systems negative Patient History Medical History (Updated 07/15/23 @ 01:09 by Miguelangel Johnson MD) Positive PPD Fatigue after COVID-19 vaccination Iron deficiency anemia Fatty liver disease, nonalcoholic Menometrorrhagia Hypothyroid Asthma Menorrhagia Surgical History Anesthesia H/O wisdom tooth extraction (~01/2016) Family History Father No problems noted. Social History Smoking Status: Never smoker Smoking Status: Never smoker alcohol intake frequency: holidays/special occasions only Substance Use Type: does not use Exam Narrative Exam Narrative: General:? Awake, alert, lying comfortably in bed during both exam and interview and in no apparent distress HEENT:? Normocephalic, atraumatic, pupils equal and reactive to light, TMs clear bilateral, trachea midline, neck is supple, normal range of motion Chest:? Normal to inspection, no crepitus, no tenderness Cardiovascular:? 2+ radial bilaterally, regular rhythm/rate. Pulmonary:? Regular respirations, no respiratory distress, lungs clear to auscultation bilateral Abdomen:? Soft, nontender, nondistended, no guarding or rebound tenderness, no hernia Back: ?No midline spinal tenderness, normal range of motion, no step-off deformities :? Exam deferred Skin:? Warm, dry, intact, diffuse urticaria over chest and bilateral upper extremities Extremities:? No deformities of bilateral upper/lower extremities, nontender Neuro:? No focal neurological deficits, moving all 4 extremities equally, normal gait, normal speech Psych:? Normal mood, normal affect normal attention Initial Vital Signs Initial Vital Signs: Vital Signs Temperature 98.6 F 06/01/23 20:02 Pulse Rate 79 06/01/23 20:02 Respiratory Rate 16 06/01/23 20:02 Blood Pressure 172/106 H 06/01/23 20:02 Pulse Oximetry 97 06/01/23 20:02 Oxygen Delivery Method Room Air 06/01/23 20:02 Course Orders Ordered: Discontinued Medications Dexamethasone (Dexamethasone 10 Mg/Ml Vial) 10 mg PO NOW ONE Stop: 06/01/23 20:11 Last Admin: 06/01/23 20:16 Dose: 10 mg Documented By: KATHY Diphenhydramine HCl (Diphenhydramine 50 Mg/Ml Vial) 50 mg IM NOW ONE Stop: 06/01/23 20:11 Last Admin: 06/01/23 20:16 Dose: 50 mg Documented By: KATHY Diphenhydramine HCl (Diphenhydramine 25 Mg Tablet) 50 mg PO NOW ONE Stop: 06/01/23 22:31 Last Admin: 06/01/23 22:33 Dose: 50 mg Documented By: VINCE Vital Signs Vital signs: Vital Signs - 8 hr 06/01/23 20:02 06/01/23 20:09 06/01/23 20:09 Temperature 98.6 F Pulse Rate 79 91 H Respiratory Rate 16 Blood Pressure 172/106 H 139/98 H Pulse Oximetry 97 97 Oxygen Delivery Method Room Air MDM - Allergic Reaction Differential Diagnosis Differential diagnosis: Likely anaphylaxis, allergic reaction, contact dermatitis, adverse reaction to drug, viral enanthem and urticaria MDM Narrative Medical decision making narrative: Patient presents with presumed allergic reaction. Diphenhydramine and Decadron given with improvement symptoms. Patient observed in the emergency department with stable vital signs and symptoms. Patient requests discharge home. Return precautions given. PCP follow-up recommended as needed. Patient able to ambulate well without assistance at time of discharge. Discharge Plan Departure Patient Disposition: Home Clinical Impression: Allergic reaction Qualifiers: Encounter type: initial encounter Qualified Code(s): T78.40XA - Allergy, unspecified, initial encounter Instructions: DI for Hives, DI for General Allergic Reactions Activity Restrictions/Additional Instructions: Take 25 mg of diphenhydramine as directed and as needed for symptom relief. Please return to the emergency department immediately if symptoms are uncontrolled or worsen Prescriptions: Continued (DME) Aerochamber MV Spacer See Rx Instructions .ROUTE .MEDSUPPLY Qty: 1 0RF Rx Instructions: As directed albuterol sulfate 90 mcg/actuation HFA aerosol inhaler 2 puff inhalation Q4-6H PRN (Reason: shortness of breath or wheezing) Qty: 8.5 0RF No Action levothyroxine 175 mcg capsule 175 mcg PO DAILY Qty: 90 0RF escitalopram oxalate [Lexapro] 10 mg tablet 10 mg PO DAILY Qty: 90 1RF Referrals: Ravi Lee MD [Primary Care Provider] - As soon as possible Stand Alone Forms: Patient Portal/API
[2023-06-01 21:19] VITALS: BP 108/59; PULSE 82; RESP 20; O2SAT 96
[2023-06-01] MEDS: diphenhydrAMINE 25 MG TABLET 50 MG PO (22:33)
[2023-06-01 22:42] VITALS: BP 124/87; PULSE 75; RESP 22; O2SAT 98
== END 2023-06-01 22:45 | disposition home or self-care (01) ==
PROVIDERS: Emergency Provider Emergency Medicine; PCP Family Medicine
DX: T78.40XA Allergy, unspecified, initial encounter (principal); L50.9 Urticaria, unspecified
CPT/HCPCS: 96372; 99283; J1100; J1200

== ENCOUNTER → 2024-07-13 12:52 | Outpatient (CLI) | payer SELFPAY ==
[2024-07-13 18:07] LABS: Influenza A - CEPHEID Flu A POSITIVE (NEGATIVE); Influenza B - CEPHEID Flu B NEGATIVE (NEGATIVE); Respiratory Syncytial Virus Negative (Negative)
[2024-07-13 18:11] LABS: COVID-19 CEPHEID 4-PLEX PCR Negative (Negative)
== END ==
PROVIDERS: PCP Family Medicine; Visit Provider Registered Nurse
DX: J02.9 Acute pharyngitis, unspecified (principal); R05.9 Cough, unspecified
CPT/HCPCS: 0241U; 87070

== ENCOUNTER 2024-09-29 23:43 | Emergency (ER) | payer SELFPAY ==
[2024-09-29 23:46] VITALS: BP 122/86; PULSE 77; RESP 24; TEMP 36.6; O2SAT 97; BMI 54.8
[2024-09-30] VITALS (7 sets, daily range): BP systolic 98–109; BP diastolic 53–71; PULSE 61–79; RESP 16; O2SAT 96–98
--- NOTE | 2024-09-30 00:58 | ED.ABDPAIN ---
HPI - Abdominal Pain General Chief Complaint: Abdominal Pain Stated Complaint: severe gastritis Time Seen by Provider: 09/30/24 00:58 Source: patient Mode of arrival: Ambulatory History of Present Illness HPI narrative: 29-year-old female no significant past medical history presents for epigastric pain. She states that the pain started last night, states that she tried taking some [id number]-[id number] medication but denies any relief she states that the symptoms are now causing her to have cold sweats nausea feeling lightheaded dizzy from the pain. But she denies any headache visual disturbances chest pain shortness of breath or any other GI/ symptoms at this time. Related Data Previous Rx's Medication Instructions Recorded inhalational spacing device #1 ea 07/20/19 (Aerochamber MV spacer) albuterol sulfate 90 mcg/actuation 2 puff inhalation Q4-6H PRN 09/18/22 aerosol inhaler shortness of breath or wheezing #8.5 grams levothyroxine 175 mcg tablet 175 mcg PO DAILY #90 tabs 05/05/24 ondansetron 4 mg disintegrating 4 mg PO Q6H PRN nausea and 07/13/24 tablet vomiting #30 tabs escitalopram oxalate 20 mg tablet 20 mg PO DAILY #90 tabs 08/03/24 aluminum-mag hydroxide-simethicone 5 ml PO 5XD PRN dyspepsia #3,000 mL 09/30/24 200 mg-200 mg-20 mg/5 mL oral susp (Maalox Advanced) Allergies Allergy/AdvReac Type Severity Reaction Status Date / Time cinnamon Allergy Verified 07/13/24 12:52 figs Allergy Mild lip Uncoded 07/13/24 12:52 swelling shell fish Allergy Mild hives Uncoded 07/13/24 12:52 Review of Systems Review of Systems Narrative: General: Denies fever, chills, weight loss HEENT: Denies headache, eye drainage, eye irritation, head trauma, sore throat, voice change Cardiovascular: Denies any chest pain, palpitations, tachycardia Respiratory: Denies any shortness of breath, cough, wheeze, stridor GI/: Positive epigastric abdominal pain, nausea, denies vomiting, diarrhea, bright red blood per rectum, melanotic stools, urinary frequency, urinary retention, dysuria, hematuria MSK: Denies any joint pain, muscle pains, swelling Skin: Denies any rashes, lesions, discoloration Neuro: Denies any headache, lightheadedness, dizziness, fainting, weakness Psych: Denies SI/HI Patient History Medical History Positive PPD Fatigue after COVID-19 vaccination Iron deficiency anemia Fatty liver disease, nonalcoholic Menometrorrhagia Hypothyroid Asthma Menorrhagia Surgical History Anesthesia H/O wisdom tooth extraction (~01/2016) Family History Father No problems noted. Social History Smoking Status: Never smoker Smoking Status: Never smoker alcohol intake frequency: holidays/special occasions only Exam Narrative Exam Narrative: General: Cooperative, well-developed, not in acute distress HEENT: Normocephalic, atraumatic, PERRLA, normal sclera, eyelids normal Neck: Active full range of motion, atraumatic Chest: Normal to inspection, negative crepitus, no overlying erythema ecchymosis Respiratory: Normal respiratory effort, not in acute respiratory distress, clear to auscultation bilaterally negative cough, wheeze, tachypnea, rhonchi, rales Cardiology: Regular rate rhythm negative gallop, murmur, rubs GI/: Mild tenderness to palpation of the epigastric region, soft, non rigid, normal to inspection, exam deferred MSK: Full active range of motion in all 4 extremities, atraumatic, no tenderness to palpation of any bony prominences Skin: No rashes or lesions noted Neuro: Alert awake oriented x3, moves all 4 extremities spontaneously, cranial nerves intact, able to answer all questions appropriately follows commands appropriately Psych: Cooperative, negative suicidal or homicidal ideations Initial Vital Signs Initial Vital Signs: Vital Signs Temperature 98 F 09/29/24 23:46 Pulse Rate 77 09/29/24 23:46 Respiratory Rate 24 09/29/24 23:46 Blood Pressure 122/86 09/29/24 23:46 Pulse Oximetry 97 09/29/24 23:46 Oxygen Delivery Method Room Air 09/29/24 23:46 Course Orders Ordered: ED Orders 09/30/24 01:06 XR chest 1V Stat EKG-12 Lead Stat 09/30/24 01:07 CT abdomen pelvis w con Stat 09/30/24 01:20 Complete Blood Count AUTO DIFF Stat Comprehensive Metabolic Panel Stat HCG Quantitative /Beta subunit Stat Lipase Stat MAG [Magnesium] Stat Troponin & CK Cardiac Panel Stat 09/30/24 03:04 Urine Culture Stat Urine Microscopic Stat Sodium Chloride (Normal Saline 0.9%) 1,000 mls @ 150 mls/hr IV CONT HILARIO Last Infusion: 09/30/24 02:25 Dose: Infused Documented By: Admin: 09/30/24 01:32 Dose: 150 mls/hr Documented By: AB Ondansetron HCl (Ondansetron 4 Mg Odt) 4 mg PO NOW PRN PRN Reason: Nausea And Vomiting Last Admin: 09/30/24 01:10 Dose: 4 mg Documented By: Discontinued Medications Famotidine (Famotidine 20 Mg/2 Ml Vial) 20 mg IV NOW ONE Stop: 09/30/24 01:07 Last Admin: 09/30/24 01:32 Dose: 20 mg Documented By: AB Vital Signs Vital signs: Vital Signs - 8 hr 09/29/24 23:46 09/30/24 01:46 09/30/24 01:48 Temperature 98 F Pulse Rate 77 61 65 Respiratory Rate 24 Blood Pressure 122/86 Pulse Oximetry 97 98 97 Oxygen Delivery Method Room Air 09/30/24 01:48 09/30/24 02:00 09/30/24 02:00 Temperature Pulse Rate 72 Respiratory Rate Blood Pressure 104/56 L 98/53 L Pulse Oximetry 96 Oxygen Delivery Method Room Air MDM - Abdominal Pain Differential Diagnosis Differential diagnosis: Likely other (ACS, gastritis, cholelithiasis, cholecystitis, pneumonia) Lab Data 09/30/24 01:20 09/30/24 01:20 Labs: Lab Results 09/30/24 Range/Units 01:20 WBC 13.1 H (4.5-11.0) X10^3/uL RBC 4.67 (4.0-5.2) X10^6/uL Hgb 12.4 (12.0-16.0) g/dL Hct 37.3 (36-46) % MCV 79.8 L (80-100) fL MCH 26.6 (26-34) PG MCHC 33.3 (30-36) % RDW 14.4 (11.6-14.8) % Plt Count 415 H (150-400) X10^3/uL Neut % (Auto) 69.6 (50-75) % Lymph % (Auto) 20.0 L (25-40) % Gage % (Auto) 5.7 (3-14) % Eos % (Auto) 3.9 (2-4) % Baso % (Auto) 0.8 (0-2) % Neut # (Auto) 9200 H (8042-3000) /uL Lymph # (Auto) 2600 (9864-8400) /uL Gage # (Auto) 700 (0-900) /uL Eos # (Auto) 500 H (0-450) /uL Baso # (Auto) 100 (0-100) /uL Sodium 135 L (137-145) mmol/L Potassium 4.2 (3.4-5.1) mmol/L Chloride 101 (98-107) mmol/L Carbon Dioxide 26 (22-32) mmol/L BUN 11 (7-17) mg/dL Creatinine 0.65 (0.52-1.04) mg/dL Estimated GFR > 60 (>60) mL/min BUN/Creatinine Ratio 16.9 (6-22) Glucose 158 H (70-99) mg/dL Calcium 9.9 (8.4-10.2) mg/dL Magnesium 1.6 (1.6-2.3) mg/dL Total Bilirubin 0.5 (0.2-1.3) mg/dL AST 118 H (14-36) IU/L ALT 113 H (<35) IU/L Alkaline Phosphatase 97 (38-126) U/L Total Creatine Kinase 53 (30-135) U/L Troponin I < 0.012 (0.01-0.034) ng/mL Total Protein 8.4 H (6.3-8.2) g/dL Albumin 4.2 (3.5-5.0) g/dL Globulin 4.2 H (1.7-4.1) g/dL Albumin/Globulin Ratio 1.0 (1.0-2.8) Lipase 67 (23-300) U/L HCG, Quant < 2.39 mIU/mL Point of care testing: Point of Care Testing Test Results Negative Urine Dip Bedside Urine Glucose Negative Bedside Urine Bilirubin - Negative Bedside Urine Ketone - Negative Urine Specific [place] 1.015 Bedside Urine Occult Blood +/- Bedside Urine pH 6.0 Bedside Urine Protein - Negative Bedside Urine Urobilinogen - Negative Bedside Urine Nitrite - Negative Bedside Urine Leukocytes - Negative Esterase Imaging Data Chest x-ray: Radiologist's Impression: [address] [address] XRay Report Signed Patient: Ray Brown V MR#: [id number] : 1995 Acct:[id number] Age/Sex: 29 / F Date of Service: 09/30/24 Loc: ED Accession Number: [id number] Procedure: XR chest 1V Ordering Provider: Jamey Rincon D.O. PROCEDURE: XR CHEST 1V INDICATIONS: Epigastric pain TECHNIQUE: One view of the chest was acquired. COMPARISON: [facility], CR, XR CHEST 2V, 06/19/2022, 11:06. [facility], CR, XR CHEST 1V, 10/31/2020, 15:04. [facility], CR, XR CHEST 1V, 10/04/2019, 5:02. FINDINGS: Surgical changes and devices: None. Lungs and pleura: Lungs are clear. No pleural effusions or pneumothorax. Mediastinum: Mediastinal contours appear normal. Heart size is normal. Bones and chest wall: No suspicious bony lesions. Overlying soft tissues appear unremarkable. IMPRESSION: No acute cardiothoracic process. CT scan - abdomen/pelvis: Radiologist's Impression: Preliminary read showing no evidence of colitis diverticulitis bowel obstruction obstructive uropathy or acute appendicitis, gallbladder pancreas spleen normal ECG Data Interpretation: EKG interpreted ED physician sinus bradycardia 55 beats per minute QTC [address] changes no STEMI MDM Narrative Medical decision making narrative: 29-year-old female without any significant past medical history presenting for epigastric pain with nausea, states that the pain is severe enough that is causing her feel lightheaded dizzy but does not actually pass out. She states it started today late last night. She denies any other symptoms, patient did have lab work imaging EKG urinalysis here in the emergency department. EKG was nonischemic in nature chest x-ray without any acute cardiopulmonary abnormality. Urinalysis not consistent with acute urinary tract infection. Troponin negative, CT scan of the abdomen and pelvis without any acute findings. Patient did have slight leukocytosis of 13.1 more likely stress related, Chem panel unremarkable, symptoms more likely secondary to GERD, did have improvement after administration of medication here we will be sent home with Maalox, strict return precautions given she verbalized understanding of this and agrees to being discharged home with outpatient follow up Discharge Plan Departure Patient Disposition: Home Clinical Impression: Acute epigastric pain Activity Restrictions/Additional Instructions: Please follow up with primary care and GI in outpatient setting Please read the discharge instructions sheet carefully and bring all papers to all doctor follow-up visits, as it may contain information that your doctor may want to see. Disease processes change and evolve, if your symptoms worsen or if you develop any new symptoms that are concerning to you please return for evaluation. Your evaluation today does not show any evidence of any life-threatening/serious illnesses requiring admission to the hospital or surgery. Please follow-up with your doctor for re-evaluation in approximately 1 day. Seek immediate medical attention for any worrisome symptoms. *If you do not have a primary care provider please contact the [facility] Resource line at [phone]. They will ask some questions about your medical history and help get you set up with a doctor in the community. Prescriptions: New alum-mag hydroxide-simeth [Maalox Advanced] 200-200-20 mg/5 mL suspension 5 ml PO 5XD PRN (Reason: dyspepsia) Qty: 3000 0RF Rx Instructions: administer between meals and at bedtime No Action ondansetron 4 mg tablet,disintegrating 4 mg PO Q6H PRN (Reason: nausea and vomiting) Qty: 30 0RF (DME) Aerochamber MV Spacer See Rx Instructions .ROUTE .MEDSUPPLY Qty: 1 0RF Rx Instructions: As directed levothyroxine 175 mcg tablet 175 mcg PO DAILY Qty: 90 1RF escitalopram oxalate 20 mg tablet 20 mg PO DAILY Qty: 90 1RF albuterol sulfate 90 mcg/actuation HFA aerosol inhaler 2 puff inhalation Q4-6H PRN (Reason: shortness of breath or wheezing) Qty: 8.5 0RF Referrals: Ravi Lee MD [Primary Care Provider] - Stand Alone Forms: Patient Portal/API/Survey
--- NOTE | 2024-09-30 01:06 | DI.RAD.S_ITS ---
PROCEDURE: XR CHEST 1V INDICATIONS: Epigastric pain TECHNIQUE: One view of the chest was acquired. COMPARISON: [facility], CR, XR CHEST 2V, 06/19/2022, 11:06. [facility], CR, XR CHEST 1V, 10/31/2020, 15:04. [facility], CR, XR CHEST 1V, 10/04/2019, 5:02. FINDINGS: Surgical changes and devices: None. Lungs and pleura: Lungs are clear. No pleural effusions or pneumothorax. Mediastinum: Mediastinal contours appear normal. Heart size is normal. Bones and chest wall: No suspicious bony lesions. Overlying soft tissues appear unremarkable. IMPRESSION: No acute cardiothoracic process. Dictated by: Dilip Alejo M.D. on 09/30/2024 at 1:29 Approved by: Dilip Alejo M.D. on 09/30/2024 at 1:29
--- NOTE | 2024-09-30 01:07 | DI.CT.S_ITS ---
PROCEDURE: CT ABDOMEN PELVIS W CON INDICATIONS: Epigastric pain TECHNIQUE: After the administration of intravenous contrast, axial sections acquired from the lung bases to the pubic symphysis. Coronal and sagittal reformats were performed. For radiation dose reduction, the following was used: automated exposure control, adjustment of mA and/or kV according to patient size. COMPARISON: None. FINDINGS: Image quality: Diagnostic. Lower Chest: No significant findings. ABDOMEN: Liver: No solid mass. Moderate to severe hepatic steatosis. Gallbladder: No radiopaque gallstones or wall thickening. Biliary ducts: No biliary dilation. Pancreas: No ductal dilation. Spleen: Size is within normal limits. Adrenal Glands: No adrenal nodules. Kidneys and Ureters: No hydronephrosis. No solid mass. No complex renal cystic lesion which requires follow up. Stomach and Bowel: Normal colonic caliber, without significant wall thickening. Appendix is visualized and is within normal limits. Peritoneum: No abnormal intraperitoneal fluid. No free air. Ventral Wall: No significant ventral hernia. Abdominal Nodes: No retroperitoneal or mesenteric adenopathy by size criteria. Vessels: Aorta and inferior vena cava are normal in size. PELVIS: Pelvic Organs: Unremarkable. Bladder: Mild diffuse bladder wall thickening is noted. No gross bladder wall mass. Pelvic Nodes: No enlarged lymph nodes. Miscellaneous: No inguinal hernias are seen. Bones: No aggressive osseous abnormality. IMPRESSION: 1. No bowel obstruction or abnormal bowel wall thickening. Normal appendix. No free fluid or free air. 2. No obstructing renal stones or hydronephrosis. Mild diffuse bladder wall thickening, cystitis cannot be excluded. No abscess collection. 3. Severe hepatic steatosis. No significant discrepancies from preliminary reading. Dictated by: Eze Wu M.D. on 09/30/2024 at 8:47 Approved by: Eze Wu M.D. on 09/30/2024 at 8:49
[2024-09-30] MEDS: ONDANSETRON 4 MG ODT PO (01:10)
[2024-09-30] MEDS: FAMOTIDINE 20 MG/2 ML VIAL IV (01:32)
[2024-09-30] MEDS: SODIUM CHLORIDE 0.9% 1,000 ML 150 ML IV (01:32)
[2024-09-30 01:41] LABS: Add Manual Diff / Slide Review NO; Basophils Absolute Auto 100 /uL (0-100); Basophils Percent Auto 0.8 % (0-2); Eosinophils Absolute Auto 500 /uL (0-450); Eosinophils Percent Auto 3.9 % (2-4); Hematocrit 37.3 % (36-46); Hemoglobin 12.4 g/dL (12.0-16.0); Lymphocytes Absolute Auto 2600 /uL (1100-4500); Mean Corpuscular HGB Conc 33.3 % (30-36); Mean Corpuscular Hemoglobin 26.6 PG (26-34); Mean Corpuscular Volume 79.8 fL (80-100); Monocytes Absolute Auto 700 /uL (0-900); Monocytes Percent Auto 5.7 % (3-14); Neutrophils Absolute Auto 9200 /uL (1500-7000); Neutrophils Percent Auto 69.6 % (50-75); Platelet Count 415 X10^3/uL (150-400); Red Blood Cell Count 4.67 X10^6/uL (4.0-5.2); Red Cell Distribution Width 14.4 % (11.6-14.8); White Blood Cell Count 13.1 X10^3/uL (4.5-11.0)
[2024-09-30 02:14] LABS: Magnesium 1.6 mg/dL (1.6-2.3)
[2024-09-30 02:31] LABS: Alanine Aminotransferase 113 IU/L (<35); Albumin 4.2 g/dL (3.5-5.0); Alkaline Phosphatase 97 U/L (38-126); Aspartate Aminotransferase 118 IU/L (14-36); BUN Creatinine Ratio 16.9 (6-22); Bilirubin Total 0.5 mg/dL (0.2-1.3); Blood Urea Nitrogen 11 mg/dL (7-17); Calcium 9.9 mg/dL (8.4-10.2); Carbon Dioxide 26 mmol/L (22-32); Chloride 101 mmol/L (98-107); Creatine Kinase 53 U/L (30-135); Estimated Glomerular Filt Rate > 60 mL/min (>60); Globulin 4.2 g/dL (1.7-4.1); Glucose 158 mg/dL (70-99); HEMOLYSIS < 15 (0-50); Lipase 67 U/L (23-300); Potassium 4.2 mmol/L (3.4-5.1); Sodium 135 mmol/L (137-145); Total Protein 8.4 g/dL (6.3-8.2)
[2024-09-30 02:43] LABS: Troponin I < 0.012 ng/mL (0.01-0.034)
[2024-09-30 02:48] LABS: HCG Quantitative /Beta subunit < 2.39 mIU/mL
--- NOTE | 2024-09-30 03:19 | EKG_ITS ---
[facility] [address] [place] [address] Test Date: 2024-09-30 Pat Name: Ray rBown Department: [facility] Room: Gender: Female Online Publisher: OREN : 1995 Requested By: Order Number: [id number] Reading MD: Jayson Marcos MD Measurements Intervals [place] Rate: 55 P: 34 RI: 164 QRS: 52 QRSD: 96 T: 29 QT: 434 QTc: 415 Interpretive Statements Poor data quality, interpretation may be adversely affected Sinus bradycardia Electronically Signed On 09-30-2024 6:52:50 PDT by Jayson Marcos MD
[2024-09-30 03:42] LABS: Urine Volume 10mL (spun)
[2024-09-30 03:43] LABS: Bacteria Urine None Seen; Culture Indicated Urine Cult Not Indicated; RBC Urine 0-1/HPF (0-5/HPF); Squamous Epithelial Cell Urine 0-1 /HPF (0-5/HPF); WBC Urine None Seen (0-5/HPF)
[2024-09-30] MEDS: ONDANSETRON 4 MG ODT PREPACK 1 BOTTLE MISC (03:47)
== END 2024-09-30 03:57 | disposition home or self-care (01) ==
PROVIDERS: Emergency Provider Student in an Organized Health Care Education/Training Program; PCP Family Medicine
DX: R10.13 Epigastric pain (principal); R00.0 Tachycardia, unspecified; R42 Dizziness and giddiness
CPT/HCPCS: 36415; 71045; 74177; 80053; 81003; 81015; 81025; 82550; 83690; 83735; 84484; 84702; 85025; 87086; 93005; 93010; 96361; 96374; 99284; Q9967

== ENCOUNTER → 2025-02-04 16:27 | Outpatient (CLI) | payer SELFPAY ==
[2025-02-04 16:58] LABS: Add Manual Diff / Slide Review NO; Hematocrit 36.2 % (36-46); Hemoglobin 12.0 g/dL (12.0-16.0); Lymphocytes Absolute Auto 3700 /uL (1100-4500); Mean Corpuscular HGB Conc 33.0 % (30-36); Mean Corpuscular Hemoglobin 25.6 PG (26-34); Mean Corpuscular Volume 77.5 fL (80-100); Platelet Count 522 X10^3/uL (150-400)
[2025-02-04 17:10] LABS: Hemoglobin A1C% w Est Avg Glu 6.5 % (4.0-6.0)
[2025-02-04 18:15] LABS: Alanine Aminotransferase 138 IU/L (<35); Albumin 4.3 g/dL (3.5-5.0); Albumin Globulin Ratio 1.0 (1.0-2.8); Alkaline Phosphatase 86 U/L (38-126); Blood Urea Nitrogen 8 mg/dL (7-17); Calcium 9.8 mg/dL (8.4-10.2); Carbon Dioxide 26 mmol/L (22-32); Chloride 99 mmol/L (98-107); Cholesterol 184 mg/dL (140-199); Estimated Glomerular Filt Rate > 60 mL/min (>60); Globulin 4.1 g/dL (1.7-4.1); Glucose 123 mg/dL (70-99); HDL Cholesterol 30 mg/dL (40-60); HEMOLYSIS < 15 (0-50); Potassium 4.4 mmol/L (3.4-5.1); Sodium 137 mmol/L (137-145); Total Protein 8.4 g/dL (6.3-8.2); Triglycerides 307 mg/dL (35-150)
[2025-02-04 18:45] LABS: TSH w/ Reflex to FT4 8.35 uIU/mL (0.47-4.68)
[2025-02-04 19:14] LABS: Free T4, Direct Thyroxine 1.33 ng/dL (0.78-2.19)
== END ==
PROVIDERS: PCP Family Medicine; Referring Provider Family Medicine; Visit Provider Family Medicine
DX: J32.9 Chronic sinusitis, unspecified (principal); E66.01 Morbid (severe) obesity due to excess calories; F41.8 Other specified anxiety disorders; D50.9 Iron deficiency anemia, unspecified; K76.0 Fatty (change of) liver, not elsewhere classified; E03.9 Hypothyroidism, unspecified
CPT/HCPCS: 36415; 80053; 80061; 83036; 84439; 84443; 85025

== ENCOUNTER → 2025-05-11 16:56 | Outpatient (CLI) | payer SELFPAY ==
[2025-05-11 18:31] LABS: Hemoglobin A1C% w Est Avg Glu 6.1 % (4.0-6.0)
[2025-05-11 18:45] LABS: Alanine Aminotransferase 96 IU/L (<35); Albumin 4.3 g/dL (3.5-5.0); Albumin Globulin Ratio 1.1 (1.0-2.8); Alkaline Phosphatase 96 U/L (38-126); Blood Urea Nitrogen 11 mg/dL (7-17); Calcium 9.9 mg/dL (8.4-10.2); Carbon Dioxide 24 mmol/L (22-32); Chloride 103 mmol/L (98-107); Estimated Glomerular Filt Rate > 60 mL/min (>60); Globulin 3.9 g/dL (1.7-4.1); Glucose 94 mg/dL (70-99); HEMOLYSIS < 15 (0-50); Potassium 4.5 mmol/L (3.4-5.1); Sodium 139 mmol/L (137-145); Total Protein 8.2 g/dL (6.3-8.2)
[2025-05-11 19:15] LABS: TSH w/ Reflex to FT4 10.10 uIU/mL (0.47-4.68)
[2025-05-11 19:54] LABS: Free T4, Direct Thyroxine 1.33 ng/dL (0.78-2.19)
== END ==
PROVIDERS: PCP Family Medicine; Referring Provider Family Medicine; Visit Provider Family Medicine
DX: E03.9 Hypothyroidism, unspecified (principal); E66.01 Morbid (severe) obesity due to excess calories; E11.9 Type 2 diabetes mellitus without complications; K76.0 Fatty (change of) liver, not elsewhere classified
CPT/HCPCS: 36415; 80053; 83036; 84439; 84443